=== PATIENT | female | born 1990 | race Caucasian/White ===

== ENCOUNTER 2016-04-14 15:44 | Emergency (ER) | payer MEDICAID ==
[~2016-04-14] VITALS: Ht 167.6 cm; Wt 95.5 kg
[~2016-04-14 15:44] MED LIST: AMOXICILLIN875 MG PO; BACTRIM DS 8001 TAB PO; BENTYL 20MG20 MG/TAB PO; DEPO-PROVER150 MG/M1 IM; GLUCOPHAGE500 MG/TAB PO; GUAIATUSSIN AC120 ML PO; IBU800 M1 PO; LIORESAL 1010 MG/TAB PO; LOTRISONE CREAM15 GM TP; MOTRIN 600600 MG/TAB PO; PERCOCET 325 MG1 TA2 PO; PHENERGAN 25 TA25 MG PO; PYRIDIUM200 M1 PO; SKELAXIN 800MG800 MG PO; SPRINTEC 35 MCG1 TAB PO; TOPAMAX 25MG25 M1 PO; ULTRAM 50MG TAB50 MG PO; ZOFRAN 4MG T4 MG/TAB PO; ZOFRAN ODT8 MG PO
[2016-04-14 15:46] VITALS: TEMP 98.2
[2016-04-14] MEDS ORDERED: ULTRAM 50MG TAB50 MG PO (16:52)
[2016-04-14 18:03] VITALS: BP 130/78; PULSE 70
== END 2016-04-14 18:04 | disposition home or self-care (01) ==
LOC: COL.ER 15:44
DX: R07.9 Chest pain, unspecified (principal)
CPT/HCPCS: J1885

== ENCOUNTER 2016-04-18 08:53 | Emergency (ER) | payer MEDICAID ==
[~2016-04-18] VITALS: Ht 167.6 cm; Wt 95.5 kg
[2016-04-18 08:58] VITALS: BP 118/79; TEMP 98.7
[2016-04-18 09:50] LABS: PH 6 (5-8); SQUAMOUS EPITHELIAL 0-2 /hpf; URINE APPEARANCE Clear; URINE BACTERIA Rare /hpf; URINE BILIRUBIN Negative (NEGATIVE); URINE BLOOD Negative (NEGATIVE); URINE COLOR Yellow; URINE GLUCOSE Negative (NEGATIVE); URINE KETONE Negative (NEGATIVE); URINE RBC 0-2 /hpf; URINE UROBILINOGEN Negative (NEGATIVE); URINE WBC 0-2 /hpf
[2016-04-18 10:30] VITALS: PULSE 85
== END 2016-04-18 10:30 | disposition home or self-care (01) ==
LOC: COL.ER 08:53
PROVIDERS: Physician Assistant
DX: R11.0 Nausea (principal); Z32.02 Encounter for pregnancy test, result negative

== ENCOUNTER 2016-05-02 03:35 | Emergency (ER) | payer MEDICAID ==
[~2016-05-02] VITALS: Ht 167.6 cm; Wt 100.0 kg
[2016-05-02 03:40] VITALS: TEMP 97.9
[2016-05-02] MEDS ORDERED: PHENERGAN 25 TA25 MG PO (04:22)
[2016-05-02 05:42] LABS: BASO # 0.1 (0.0-0.2); BASO % 0.4 % (0.0-2.0); EOS # 0.1 (0.0-0.7); EOS % 0.8 % (0-4.0); GRAN # 14.3 (1.4-6.5); GRAN % 84.2 % (42.2-75.2); HEMATOCRIT 42.1 % (37.0-47.0); HEMOGLOBIN 14.2 g/dl (12.5-16.0); LYMPH # 1.5 (1.2-3.4); LYMPH % 8.5 % (20.0-51.0); MEAN CELL VOLUME 92 fl (80.0-100.0); MEAN CORPUSCULAR HEMOGLOBIN 31 pg (27.0-31.0); MEAN CORPUSCULAR HGB CONC 34 g/dl (33.0-37.0); MEAN PLATELET VOLUME 11.1 fl (7.4-10.4); MONO % 5.8 % (1.7-9.3); PLATELET COUNT 220 K/mm3 (130-400); REDCELL DISTRIBUTION WIDTH-CV 13.1 % (11.5-14.5)
[2016-05-02 05:59] LABS: ADJUSTED CALCIUM 8.8 mg/dL (8.4-10.2); ALBUMIN 3.7 gm/dL (3.5-5.0); BILIRUBIN,TOTAL 0.9 mg/dL (0.0-1.0); CALCIUM 8.6 mg/dL (8.4-10.2); CREATININE, serum 0.68 mg/dL (0.52-1.25); POTASSIUM 4.2 mmol/L (3.4-5.0); TOTAL PROTEIN 6.7 gm/dL (6.4-8.2)
[2016-05-02 07:01] VITALS: BP 137/79; PULSE 70
== END 2016-05-02 07:05 | disposition home or self-care (01) ==
LOC: COL.ER 03:35
PROVIDERS: Emergency Medicine
DX: R11.10 Vomiting, unspecified (principal); R19.7 Diarrhea, unspecified; R10.817 Generalized abdominal tenderness
CPT/HCPCS: J1170; J1885; J2550; J7030

== ENCOUNTER 2016-07-10 08:48 | Emergency (ER) | payer MEDICAID ==
[~2016-07-10] VITALS: Ht 167.6 cm; Wt 104.5 kg
[2016-07-10 08:51] VITALS: BP 137/68; TEMP 99.2
[2016-07-10] MEDS ORDERED: ROBAXIN 50500 MG/TAB PO (09:12)
[2016-07-10] MEDS ORDERED: PERCOCET 325 MG1 TA2 PO (09:12)
[2016-07-10 09:53] VITALS: PULSE 81
== END 2016-07-10 09:52 | disposition home or self-care (01) ==
LOC: COL.ER 08:48
DX: M54.9 Dorsalgia, unspecified (principal); V48.5XXA Car driver injured in noncollision transport accident in traffic accident, initial encounter; Y92.410 Unspecified street and highway as the place of occurrence of the external cause
CPT/HCPCS: J1170; J1885

== ENCOUNTER 2016-07-22 11:44 | Emergency (ER) | payer MEDICAID ==
[~2016-07-22] VITALS: Ht 167.6 cm; Wt 100.0 kg
[~2016-07-22 11:44] MED LIST changes: +ROBAXIN 50500 MG/TAB PO
[2016-07-22 11:46] VITALS: BP 154/68; TEMP 98.7
[2016-07-22 12:24] LABS: PH 6 (5-8); SQUAMOUS EPITHELIAL 0-2 /hpf; URINE APPEARANCE Clear; URINE BACTERIA Rare /hpf; URINE BILIRUBIN Negative (NEGATIVE); URINE BLOOD Negative (NEGATIVE); URINE COLOR Yellow; URINE GLUCOSE Negative (NEGATIVE); URINE KETONE Negative (NEGATIVE); URINE RBC 0-2 /hpf; URINE UROBILINOGEN Negative (NEGATIVE); URINE WBC 0-2 /hpf
[2016-07-22 12:55] LABS: BASO # 0.1 (0.0-0.2); BASO % 0.8 % (0.0-2.0); EOS # 0.1 (0.0-0.7); EOS % 1.3 % (0-4.0); GRAN # 5.7 (1.4-6.5); GRAN % 63.4 % (42.2-75.2); HEMATOCRIT 42.2 % (37.0-47.0); HEMOGLOBIN 14.3 g/dl (12.5-16.0); LYMPH # 2.6 (1.2-3.4); LYMPH % 28.2 % (20.0-51.0); MEAN CELL VOLUME 91 fl (80.0-100.0); MEAN CORPUSCULAR HEMOGLOBIN 31 pg (27.0-31.0); MEAN CORPUSCULAR HGB CONC 34 g/dl (33.0-37.0); MEAN PLATELET VOLUME 11.5 fl (7.4-10.4); MONO # 0.5 (0.1-0.6); PLATELET COUNT 177 K/mm3 (130-400); RED BLOOD COUNT 4.62 M/mm3 (4.10-5.30); REDCELL DISTRIBUTION WIDTH-CV 13.1 % (11.5-14.5); WHITE BLOOD COUNT 9.1 K/mm3 (4.8-10.8)
[2016-07-22 13:06] LABS: ADJUSTED CALCIUM 9.1 mg/dL (8.4-10.2); ALBUMIN 3.8 gm/dL (3.5-5.0); BILIRUBIN,TOTAL 0.7 mg/dL (0.0-1.0); CALCIUM 8.9 mg/dL (8.4-10.2); CREATININE, serum 0.67 mg/dL (0.52-1.25); TOTAL PROTEIN 6.5 gm/dL (6.4-8.2)
[2016-07-22 14:53] VITALS: PULSE 79
[2016-07-22 14:59] LABS: CHLAMYDIA/TRACH by PCR Female NOT DETECTED; NEISSERIA GON by PCR Female NOT DETECTED
== END 2016-07-22 14:54 | disposition home or self-care (01) ==
LOC: COL.ER 11:44
PROVIDERS: Nurse Practitioner
DX: O26.891 Other specified pregnancy related conditions, first trimester (principal); Z3A.01 Less than 8 weeks gestation of pregnancy; R10.2 Pelvic and perineal pain; N89.8 Other specified noninflammatory disorders of vagina
CPT/HCPCS: J2765; J7030

== ENCOUNTER 2016-08-22 12:08 | Emergency (ER) | payer MEDICAID ==
[~2016-08-22] VITALS: Ht 167.6 cm; Wt 118.2 kg
[2016-08-22 12:15] VITALS: TEMP 98.2
[2016-08-22] MEDS ORDERED: PRENATAL MVI PO (12:18)
[2016-08-22 12:55] LABS: PH 5 (5-8); URINE APPEARANCE Hazy; URINE BACTERIA Rare /hpf; URINE BILIRUBIN Negative (NEGATIVE); URINE BLOOD Negative (NEGATIVE); URINE COLOR Yellow; URINE GLUCOSE Negative (NEGATIVE); URINE KETONE Negative (NEGATIVE); URINE UROBILINOGEN Negative (NEGATIVE)
[2016-08-22 14:58] VITALS: BP 138/78; PULSE 70
== END 2016-08-22 14:58 | disposition home or self-care (01) ==
LOC: COL.ER 12:08
PROVIDERS: Emergency Medicine
DX: O26.891 Other specified pregnancy related conditions, first trimester (principal); R10.2 Pelvic and perineal pain; Z3A.11 11 weeks gestation of pregnancy

== ENCOUNTER 2016-08-26 16:20 | Emergency (ER) | payer MEDICAID ==
[~2016-08-26] VITALS: Ht 167.6 cm; Wt 118.2 kg
[~2016-08-26 16:20] MED LIST changes: +PRENATAL MVI PO
[2016-08-26 16:21] VITALS: TEMP 98.9
[2016-08-26 20:23] LABS: BASO # 0.1 (0.0-0.2); BASO % 0.5 % (0.0-2.0); EOS % 0.4 % (0-4.0); GRAN # 6.8 (1.4-6.5); GRAN % 69.7 % (42.2-75.2); HEMATOCRIT 39.8 % (37.0-47.0); HEMOGLOBIN 13.5 g/dl (12.5-16.0); LYMPH # 2.3 (1.2-3.4); LYMPH % 23.4 % (20.0-51.0); MEAN CELL VOLUME 91 fl (80.0-100.0); MEAN CORPUSCULAR HEMOGLOBIN 31 pg (27.0-31.0); MEAN CORPUSCULAR HGB CONC 34 g/dl (33.0-37.0); MEAN PLATELET VOLUME 11.6 fl (7.4-10.4); MONO # 0.6 (0.1-0.6); MONO % 5.6 % (1.7-9.3); PH 5 (5-8); PLATELET COUNT 171 K/mm3 (130-400); RED BLOOD COUNT 4.37 M/mm3 (4.10-5.30); REDCELL DISTRIBUTION WIDTH-CV 13.5 % (11.5-14.5); URINE APPEARANCE Hazy; URINE BACTERIA Rare /hpf; URINE BILIRUBIN Negative (NEGATIVE); URINE BLOOD Negative (NEGATIVE); URINE COLOR Amber; URINE GLUCOSE 2+ (NEGATIVE); URINE KETONE 2+ (NEGATIVE); URINE UROBILINOGEN Negative (NEGATIVE); WHITE BLOOD COUNT 9.8 K/mm3 (4.8-10.8)
[2016-08-26 20:25] LABS: ALBUMIN 3.7 gm/dL (3.5-5.0); BILIRUBIN,TOTAL 0.6 mg/dL (0.0-1.0); C-REACTIVE PROTEIN 1.8 mg/dL (0.0-0.9); CALCIUM 8.8 mg/dL (8.4-10.2); CREATININE, serum 0.62 mg/dL (0.52-1.25); POTASSIUM 3.6 mmol/L (3.4-5.0); TOTAL PROTEIN 6.4 gm/dL (6.4-8.2)
[2016-08-26 22:41] VITALS: BP 138/72; PULSE 81
== END 2016-08-26 19:15 | disposition home or self-care (01) ==
LOC: COL.ER 16:20
PROVIDERS: Emergency Medicine
DX: O99.351 Diseases of the nervous system complicating pregnancy, first trimester (principal); O23.41 Unspecified infection of urinary tract in pregnancy, first trimester; G43.909 Migraine, unspecified, not intractable, without status migrainosus; Z3A.11 11 weeks gestation of pregnancy; Z90.49 Acquired absence of other specified parts of digestive tract; Z98.890 Other specified postprocedural states
CPT/HCPCS: J0696; J2550; J7030

== ENCOUNTER 2016-09-04 13:11 | Emergency (ER) | payer MEDICAID ==
[~2016-09-04] VITALS: Ht 167.6 cm; Wt 118.2 kg
[2016-09-04 13:16] VITALS: BP 132/63; TEMP 97.7
[2016-09-04 16:19] VITALS: PULSE 84
== END 2016-09-04 16:20 | disposition home or self-care (01) ==
LOC: COL.ER 13:11
DX: O99.89 Other specified diseases and conditions complicating pregnancy, childbirth and the puerperium (principal); R51 Headache; H53.8 Other visual disturbances; R42 Dizziness and giddiness; Z3A.11 11 weeks gestation of pregnancy; O99.351 Diseases of the nervous system complicating pregnancy, first trimester; G43.909 Migraine, unspecified, not intractable, without status migrainosus
CPT/HCPCS: J1200; J2765; J7030

== ENCOUNTER 2016-09-15 13:13 | Emergency (ER) | payer MEDICAID ==
[~2016-09-15] VITALS: Ht 167.6 cm; Wt 118.2 kg
[2016-09-15 13:14] VITALS: BP 152/90; PULSE 99; TEMP 99.5
[2016-09-15 14:12] LABS: BASO % 0.4 % (0.0-2.0); EOS # 0.1 (0.0-0.7); EOS % 0.8 % (0-4.0); GRAN # 7.4 (1.4-6.5); GRAN % 73.2 % (42.2-75.2); HEMATOCRIT 41.7 % (37.0-47.0); HEMOGLOBIN 14.2 g/dl (12.5-16.0); LYMPH # 2.2 (1.2-3.4); LYMPH % 21.3 % (20.0-51.0); MEAN CELL VOLUME 92 fl (80.0-100.0); MEAN CORPUSCULAR HEMOGLOBIN 31 pg (27.0-31.0); MEAN CORPUSCULAR HGB CONC 34 g/dl (33.0-37.0); MEAN PLATELET VOLUME 11.5 fl (7.4-10.4); MONO # 0.4 (0.1-0.6); MONO % 3.9 % (1.7-9.3); PLATELET COUNT 158 K/mm3 (130-400); RED BLOOD COUNT 4.53 M/mm3 (4.10-5.30); REDCELL DISTRIBUTION WIDTH-CV 13.5 % (11.5-14.5); WHITE BLOOD COUNT 10.2 K/mm3 (4.8-10.8)
[2016-09-15 14:13] LABS: PH 5 (5-8); URINE APPEARANCE Hazy; URINE BACTERIA Rare /hpf; URINE BILIRUBIN Negative (NEGATIVE); URINE BLOOD Negative (NEGATIVE); URINE COLOR Amber; URINE GLUCOSE Negative (NEGATIVE); URINE KETONE Trace (NEGATIVE); URINE UROBILINOGEN Negative (NEGATIVE)
[2016-09-15 14:16] LABS: ADJUSTED CALCIUM 9.3 mg/dL (8.4-10.2); ALBUMIN 3.9 gm/dL (3.5-5.0); BILIRUBIN,TOTAL 0.8 mg/dL (0.0-1.0); CALCIUM 9.2 mg/dL (8.4-10.2); CREATININE, serum 0.59 mg/dL (0.52-1.25); POTASSIUM 3.7 mmol/L (3.4-5.0); TOTAL PROTEIN 6.5 gm/dL (6.4-8.2)
[2016-09-15] MEDS ORDERED: MACROBID 1100 MG/CAP PO (15:38)
== END 2016-09-15 15:35 | disposition home or self-care (01) ==
LOC: COL.ER 13:13
PROVIDERS: Physician Assistant
DX: O99.89 Other specified diseases and conditions complicating pregnancy, childbirth and the puerperium (principal); R53.81 Other malaise; R10.84 Generalized abdominal pain; R11.2 Nausea with vomiting, unspecified; R07.89 Other chest pain; R82.90 Unspecified abnormal findings in urine; Z3A.14 14 weeks gestation of pregnancy
CPT/HCPCS: J2550; J7030

== ENCOUNTER 2016-10-05 10:23 | Emergency (ER) | payer MEDICAID ==
[~2016-10-05] VITALS: Ht 167.6 cm; Wt 104.5 kg
[~2016-10-05 10:23] MED LIST changes: +MACROBID 1100 MG/CAP PO
[2016-10-05 10:25] VITALS: BP 139/74; PULSE 99; TEMP 99.4
[2016-10-05 11:13] LABS: BASO % 0.3 % (0.0-2.0); EOS # 0.1 (0.0-0.7); EOS % 0.8 % (0-4.0); GRAN # 6.2 (1.4-6.5); GRAN % 70.8 % (42.2-75.2); HEMATOCRIT 38.3 % (37.0-47.0); HEMOGLOBIN 13.3 g/dl (12.5-16.0); LYMPH # 1.8 (1.2-3.4); LYMPH % 20.6 % (20.0-51.0); MEAN CELL VOLUME 91 fl (80.0-100.0); MEAN CORPUSCULAR HEMOGLOBIN 32 pg (27.0-31.0); MEAN CORPUSCULAR HGB CONC 35 g/dl (33.0-37.0); MEAN PLATELET VOLUME 11.6 fl (7.4-10.4); MONO # 0.6 (0.1-0.6); MONO % 6.6 % (1.7-9.3); PLATELET COUNT 145 K/mm3 (130-400); RED BLOOD COUNT 4.22 M/mm3 (4.10-5.30); REDCELL DISTRIBUTION WIDTH-CV 13.4 % (11.5-14.5); WHITE BLOOD COUNT 8.8 K/mm3 (4.8-10.8)
[2016-10-05 11:19] LABS: PH 7 (5-8); URINE APPEARANCE Cloudy; URINE BACTERIA Rare /hpf; URINE BILIRUBIN Negative (NEGATIVE); URINE BLOOD Negative (NEGATIVE); URINE COLOR Yellow; URINE GLUCOSE 1+ (NEGATIVE); URINE KETONE Trace (NEGATIVE); URINE RBC 0-2 /hpf; URINE UROBILINOGEN Negative (NEGATIVE); URINE WBC 0-2 /hpf
[2016-10-05 11:20] LABS: ADJUSTED CALCIUM 9.6 mg/dL (8.4-10.2); ALBUMIN 3.4 gm/dL (3.5-5.0); BILIRUBIN,TOTAL 0.3 mg/dL (0.0-1.0); CALCIUM 9.1 mg/dL (8.4-10.2); CREATININE, serum 0.49 mg/dL (0.52-1.25); POTASSIUM 3.9 mmol/L (3.4-5.0); TOTAL PROTEIN 6.2 gm/dL (6.4-8.2)
[2016-10-05] MEDS ORDERED: ZOFRAN ODT4 MG PO (11:42)
== END 2016-10-09 11:57 | disposition home or self-care (01) ==
LOC: COL.ER 10:23
PROVIDERS: Emergency Medicine
DX: O26.892 Other specified pregnancy related conditions, second trimester (principal); Z3A.16 16 weeks gestation of pregnancy
CPT/HCPCS: J2765; J7030

== ENCOUNTER 2016-11-10 18:49 | Emergency (ER) | payer MEDICAID ==
[~2016-11-10] VITALS: Ht 167.6 cm; Wt 109.1 kg
[~2016-11-10 18:49] MED LIST changes: +ZOFRAN ODT4 MG PO
[2016-11-10 18:51] VITALS: BP 132/66; TEMP 98.9
[2016-11-10 19:26] LABS: BASO % 0.3 % (0.0-2.0); EOS # 0.2 (0.0-0.7); EOS % 1.7 % (0-4.0); GRAN # 7.9 (1.4-6.5); GRAN % 66.6 % (42.2-75.2); HEMATOCRIT 37.2 % (37.0-47.0); HEMOGLOBIN 12.8 g/dl (12.5-16.0); LYMPH # 2.9 (1.2-3.4); LYMPH % 24.7 % (20.0-51.0); MEAN CELL VOLUME 92 fl (80.0-100.0); MEAN CORPUSCULAR HEMOGLOBIN 32 pg (27.0-31.0); MEAN CORPUSCULAR HGB CONC 34 g/dl (33.0-37.0); MEAN PLATELET VOLUME 12.1 fl (7.4-10.4); MONO # 0.7 (0.1-0.6); PLATELET COUNT 152 K/mm3 (130-400); RED BLOOD COUNT 4.04 M/mm3 (4.10-5.30); REDCELL DISTRIBUTION WIDTH-CV 13.6 % (11.5-14.5); WHITE BLOOD COUNT 11.9 K/mm3 (4.8-10.8)
[2016-11-10 19:31] LABS: PH 6 (5-8); URINE APPEARANCE Cloudy; URINE BACTERIA None Seen /hpf; URINE BILIRUBIN Negative (NEGATIVE); URINE BLOOD Negative (NEGATIVE); URINE COLOR Yellow; URINE GLUCOSE Negative (NEGATIVE); URINE KETONE Negative (NEGATIVE); URINE RBC 0-2 /hpf; URINE UROBILINOGEN Negative (NEGATIVE)
[2016-11-10 19:58] VITALS: PULSE 88
== END 2016-11-10 19:59 | disposition home or self-care (01) ==
LOC: COL.ER 18:49
PROVIDERS: Family Medicine
DX: O9A.212 Injury, poisoning and certain other consequences of external causes complicating pregnancy, second trimester (principal); S30.1XXA Contusion of abdominal wall, initial encounter; Z3A.21 21 weeks gestation of pregnancy; W18.30XA Fall on same level, unspecified, initial encounter

== ENCOUNTER → 2016-11-28 | Outpatient (CLI) | payer MEDICAID ==
[~2016-11-28] MED LIST changes: +PEPCID40 MG PO
== END ==
LOC: SUN.DIA 11-14 09:50
DX: O24.419 Gestational diabetes mellitus in pregnancy, unspecified control (principal); Z3A.23 23 weeks gestation of pregnancy; Z90.49 Acquired absence of other specified parts of digestive tract; Z71.3 Dietary counseling and surveillance
CPT/HCPCS: G0108

== ENCOUNTER 2016-11-30 19:32 | Emergency (ER) | payer MEDICAID ==
[~2016-11-30] VITALS: Ht 167.6 cm; Wt 118.2 kg
[~2016-11-30 19:32] MED LIST changes: -PEPCID40 MG PO
[2016-11-30 19:34] VITALS: TEMP 99.5
[2016-11-30 20:09] VITALS: BP 118/78
[2016-11-30 20:15] LABS: PH 6 (5-8); SQUAMOUS EPITHELIAL 0-2 /hpf; URINE APPEARANCE Clear; URINE BACTERIA None Seen /hpf; URINE BILIRUBIN Negative (NEGATIVE); URINE BLOOD Negative (NEGATIVE); URINE COLOR Yellow; URINE GLUCOSE Negative (NEGATIVE); URINE KETONE Negative (NEGATIVE); URINE RBC 0-2 /hpf; URINE UROBILINOGEN Negative (NEGATIVE)
[2016-11-30 20:41] LABS: BASO # 0.1 (0.0-0.2); BASO % 0.4 % (0.0-2.0); EOS # 0.1 (0.0-0.7); EOS % 1.1 % (0-4.0); GRAN # 8.8 (1.4-6.5); GRAN % 69.4 % (42.2-75.2); HEMOGLOBIN 12.5 g/dl (12.5-16.0); LYMPH # 2.9 (1.2-3.4); LYMPH % 22.6 % (20.0-51.0); MEAN CELL VOLUME 93 fl (80.0-100.0); MEAN CORPUSCULAR HEMOGLOBIN 32 pg (27.0-31.0); MEAN CORPUSCULAR HGB CONC 35 g/dl (33.0-37.0); MEAN PLATELET VOLUME 11.7 fl (7.4-10.4); MONO # 0.7 (0.1-0.6); MONO % 5.7 % (1.7-9.3); PLATELET COUNT 156 K/mm3 (130-400); RED BLOOD COUNT 3.87 M/mm3 (4.10-5.30); REDCELL DISTRIBUTION WIDTH-CV 13.9 % (11.5-14.5); WHITE BLOOD COUNT 12.7 K/mm3 (4.8-10.8)
[2016-11-30 20:43] LABS: HEMATOCRIT 36.1 % (37.0-47.0)
[2016-11-30 20:54] LABS: ADJUSTED CALCIUM 9.6 mg/dL (8.4-10.2); ALBUMIN 3.5 gm/dL (3.5-5.0); BILIRUBIN,TOTAL 0.3 mg/dL (0.0-1.0); CALCIUM 9.2 mg/dL (8.4-10.2); CREATININE, serum 0.7 mg/dL (0.52-1.25); POTASSIUM 3.6 mmol/L (3.4-5.0); TOTAL PROTEIN 6.4 gm/dL (6.4-8.2)
[2016-11-30 21:38] VITALS: PULSE 75
== END 2016-11-30 21:40 | disposition home or self-care (01) ==
LOC: COL.ER 19:32
PROVIDERS: Emergency Medicine
DX: O26.92 Pregnancy related conditions, unspecified, second trimester (principal); R42 Dizziness and giddiness; Z3A.23 23 weeks gestation of pregnancy
CPT/HCPCS: J7030

== ENCOUNTER 2016-12-03 08:54 | Outpatient (CLI) | payer MEDICAID ==
[~2016-12-03] VITALS: Ht 167.6 cm; Wt 118.6 kg
[2016-12-03 09:15] VITALS: BP 136/65; PULSE 77; TEMP 98.4
[2016-12-03 10:00] VITALS: BP 139/63; PULSE 78
[2016-12-03 10:28] LABS: PH 7 (5-8); URINE APPEARANCE Hazy; URINE BACTERIA None Seen /hpf; URINE BILIRUBIN Negative (NEGATIVE); URINE BLOOD Negative (NEGATIVE); URINE COLOR Yellow; URINE GLUCOSE Negative (NEGATIVE); URINE KETONE Trace (NEGATIVE); URINE RBC 0-2 /hpf; URINE UROBILINOGEN Negative (NEGATIVE)
== END 2016-12-03 11:00 | disposition home or self-care (01) ==
LOC: LDRO 08:54
PROVIDERS: Obstetrics & Gynecology
DX: O26.892 Other specified pregnancy related conditions, second trimester (principal); Z3A.24 24 weeks gestation of pregnancy

== ENCOUNTER → 2016-12-12 | Outpatient (CLI) | payer MEDICAID ==
[~2016-12-12] MED LIST changes: +PEPCID40 MG PO
== END ==
LOC: COL.VAS 12:30
DX: O99.412 Diseases of the circulatory system complicating pregnancy, second trimester (principal); I36.1 Nonrheumatic tricuspid (valve) insufficiency; O99.512 Diseases of the respiratory system complicating pregnancy, second trimester; R06.02 Shortness of breath; Z3A.24 24 weeks gestation of pregnancy

== ENCOUNTER 2016-12-14 14:36 | Emergency (ER) | payer MEDICAID ==
[~2016-12-14] VITALS: Ht 167.6 cm; Wt 118.2 kg
[~2016-12-14 14:36] MED LIST changes: -PEPCID40 MG PO
[2016-12-14 14:40] VITALS: TEMP 98.3
[2016-12-14 16:15] LABS: PH 6 (5-8); URINE APPEARANCE Hazy; URINE BACTERIA None Seen /hpf; URINE BILIRUBIN Negative (NEGATIVE); URINE BLOOD Negative (NEGATIVE); URINE COLOR Yellow; URINE GLUCOSE 1+ (NEGATIVE); URINE KETONE Negative (NEGATIVE); URINE RBC 0-2 /hpf; URINE UROBILINOGEN Negative (NEGATIVE); URINE WBC 0-2 /hpf
[2016-12-14 16:22] LABS: ADJUSTED CALCIUM 9.5 mg/dL (8.4-10.2); ALBUMIN 3.5 gm/dL (3.5-5.0); BASO % 0.4 % (0.0-2.0); BILIRUBIN,TOTAL 0.4 mg/dL (0.0-1.0); CALCIUM 9.1 mg/dL (8.4-10.2); CREATININE, serum 0.56 mg/dL (0.52-1.25); EOS # 0.2 (0.0-0.7); EOS % 1.8 % (0-4.0); GRAN # 8.2 (1.4-6.5); GRAN % 71.8 % (42.2-75.2); HEMATOCRIT 36.2 % (37.0-47.0); HEMOGLOBIN 12.3 g/dl (12.5-16.0); LYMPH # 2.1 (1.2-3.4); LYMPH % 18.6 % (20.0-51.0); MEAN CELL VOLUME 95 fl (80.0-100.0); MEAN CORPUSCULAR HEMOGLOBIN 32 pg (27.0-31.0); MEAN CORPUSCULAR HGB CONC 34 g/dl (33.0-37.0); MONO # 0.7 (0.1-0.6); MONO % 6.5 % (1.7-9.3); PLATELET COUNT 160 K/mm3 (130-400); POTASSIUM 4.1 mmol/L (3.4-5.0); RED BLOOD COUNT 3.83 M/mm3 (4.10-5.30); TOTAL PROTEIN 6.4 gm/dL (6.4-8.2); WHITE BLOOD COUNT 11.4 K/mm3 (4.8-10.8)
[2016-12-14] MEDS ORDERED: PEPCID40 MG PO (17:42)
[2016-12-14 17:53] VITALS: BP 103/53; PULSE 71
== END 2016-12-14 17:54 | disposition home or self-care (01) ==
LOC: COL.ER 14:36
PROVIDERS: Emergency Medicine
DX: O99.89 Other specified diseases and conditions complicating pregnancy, childbirth and the puerperium (principal); R10.13 Epigastric pain; R07.9 Chest pain, unspecified; Z3A.25 25 weeks gestation of pregnancy
CPT/HCPCS: J7030

== ENCOUNTER 2016-12-24 10:35 | Outpatient (CLI) | payer MEDICAID ==
[~2016-12-24] VITALS: Ht 167.6 cm; Wt 118.6 kg
[~2016-12-24 10:35] MED LIST changes: +PEPCID40 MG PO
[2016-12-24 10:48] VITALS: BP 127/71; PULSE 87; TEMP 98
[2016-12-24 11:35] LABS: PH 7 (5-8); URINE APPEARANCE Hazy; URINE BACTERIA Rare /hpf; URINE BILIRUBIN Negative (NEGATIVE); URINE BLOOD Negative (NEGATIVE); URINE COLOR Yellow; URINE GLUCOSE Negative (NEGATIVE); URINE KETONE 1+ (NEGATIVE); URINE RBC 0-2 /hpf; URINE UROBILINOGEN Negative (NEGATIVE)
[2016-12-24 11:48] VITALS: BP 127/71; PULSE 87; TEMP 98.8
== END 2016-12-24 12:00 | disposition home or self-care (01) ==
LOC: LDRO 10:35
PROVIDERS: Obstetrics & Gynecology
DX: O99.89 Other specified diseases and conditions complicating pregnancy, childbirth and the puerperium (principal); M54.9 Dorsalgia, unspecified; Z3A.27 27 weeks gestation of pregnancy

== ENCOUNTER → 2017-01-02 | Outpatient (CLI) | payer MEDICAID | LOC: SUN.DIA 12-19 09:51 | DX: O24.414 Gestational diabetes mellitus in pregnancy, insulin controlled (principal); Z3A.29 29 weeks gestation of pregnancy; Z71.3 Dietary counseling and surveillance | CPT/HCPCS: G0108 ==

== ENCOUNTER → 2017-01-09 | Outpatient (CLI) | payer MEDICAID ==
[~2017-01-09] MED LIST changes: +LEVEMIR100 U/ML SQ; +TYLENOL 500MG500 MG PO
== END ==
LOC: SUN.DIA 09:45
DX: O24.414 Gestational diabetes mellitus in pregnancy, insulin controlled (principal); Z3A.31 31 weeks gestation of pregnancy; Z71.3 Dietary counseling and surveillance
CPT/HCPCS: G0108

== ENCOUNTER 2017-01-14 14:03 | Outpatient (CLI) | payer MEDICAID ==
[~2017-01-14] VITALS: Ht 15.2 cm; Wt 118.6 kg
[~2017-01-14 14:03] MED LIST changes: -LEVEMIR100 U/ML SQ; -TYLENOL 500MG500 MG PO
[2017-01-14 14:27] VITALS: BP 126/73; PULSE 86; TEMP 98
[2017-01-14] MEDS ORDERED: LEVEMIR100 U/ML SQ (14:29)
[2017-01-14 14:30] VITALS: BP 126/73; PULSE 86; TEMP 98
[2017-01-14] MEDS ORDERED: TYLENOL 500MG500 MG PO (14:30)
[2017-01-14 15:00] VITALS: BP 122/74; PULSE 86
[2017-01-14 15:32] VITALS: BP 129/69; PULSE 82; TEMP 97.9
[2017-01-14] MEDS ORDERED: MACROBID 1100 MG/CAP PO (15:40)
== END 2017-01-14 15:55 | disposition home or self-care (01) ==
LOC: LDRO 14:03
DX: O26.893 Other specified pregnancy related conditions, third trimester (principal); R10.9 Unspecified abdominal pain; Z3A.30 30 weeks gestation of pregnancy

== ENCOUNTER 2017-01-15 17:29 | Emergency (ER) | payer MEDICAID ==
[~2017-01-15] VITALS: Ht 167.6 cm; Wt 119.5 kg
[~2017-01-15 17:29] MED LIST changes: +LEVEMIR100 U/ML SQ; +TYLENOL 500MG500 MG PO
[2017-01-15 17:34] VITALS: BP 121/56; TEMP 99
[2017-01-15 19:10] VITALS: PULSE 86
== END 2017-01-15 19:11 | disposition home or self-care (01) ==
LOC: COL.ER 17:29
DX: O9A.213 Injury, poisoning and certain other consequences of external causes complicating pregnancy, third trimester (principal); S63.601A Unspecified sprain of right thumb, initial encounter; Z3A.30 30 weeks gestation of pregnancy; Z79.4 Long term (current) use of insulin; Z98.818 Other dental procedure status; Z98.890 Other specified postprocedural states; W23.1XXA Caught, crushed, jammed, or pinched between stationary objects, initial encounter; Y92.009 Unspecified place in unspecified non-institutional (private) residence as the place of occurrence of the external cause

== ENCOUNTER 2017-01-22 16:35 | Outpatient (CLI) | payer MEDICAID ==
[~2017-01-22] VITALS: Ht 167.6 cm; Wt 120.9 kg
[2017-01-22 17:09] VITALS: BP 129/60; PULSE 86; TEMP 98.6
[2017-01-22 17:15] VITALS: BP 129/60; PULSE 86; TEMP 98.6
[2017-01-22 18:30] VITALS: BP 129/60; PULSE 78
== END 2017-01-22 18:45 | disposition home or self-care (01) ==
LOC: LDRO 16:35 → OB 16:45 → LDRO 18:45
DX: O26.893 Other specified pregnancy related conditions, third trimester (principal); Z3A.31 31 weeks gestation of pregnancy
CPT/HCPCS: OP

== ENCOUNTER 2017-01-26 16:45 | Inpatient (IN) | payer MEDICAID ==
[~2017-01-26] VITALS: Ht 167.7 cm; Wt 121.8 kg
[2017-03-03] MEDS ORDERED: ZANTAC 150MG T150 MG PO (20:39)
[2017-03-13] VITALS (19 sets, daily range): BP systolic 115–146; BP diastolic 51–81; PULSE 73–87; TEMP 98.3–98.7
[2017-03-13 07:09] LABS: BASO # 0.1 (0.0-0.2); BASO % 0.7 % (0.0-2.0); EOS # 0.4 (0.0-0.7); EOS % 3.4 % (0-4.0); GRAN # 7.1 (1.4-6.5); HEMATOCRIT 38.4 % (37.0-47.0); HEMOGLOBIN 12.7 g/dl (12.5-16.0); LYMPH # 1.8 (1.2-3.4); LYMPH % 17.4 % (20.0-51.0); MEAN CELL VOLUME 94 fl (80.0-100.0); MEAN CORPUSCULAR HEMOGLOBIN 31 pg (27.0-31.0); MEAN CORPUSCULAR HGB CONC 33 g/dl (33.0-37.0); MEAN PLATELET VOLUME 13.1 fl (7.4-10.4); MONO # 0.9 (0.1-0.6); MONO % 8.5 % (1.7-9.3); PLATELET COUNT 137 K/mm3 (130-400); RED BLOOD COUNT 4.08 M/mm3 (4.10-5.30); WHITE BLOOD COUNT 10.3 K/mm3 (4.8-10.8)
[2017-03-14 00:42] VITALS: BP 106/59; PULSE 86; TEMP 98.2
[2017-03-14 06:34] LABS: BASO % 0.4 % (0.0-2.0); EOS # 0.3 (0.0-0.7); EOS % 2.5 % (0-4.0); GRAN # 7.3 (1.4-6.5); GRAN % 68.8 % (42.2-75.2); HEMATOCRIT 36.1 % (37.0-47.0); LYMPH # 1.9 (1.2-3.4); LYMPH % 17.9 % (20.0-51.0); MEAN CELL VOLUME 95 fl (80.0-100.0); MEAN CORPUSCULAR HEMOGLOBIN 32 pg (27.0-31.0); MEAN CORPUSCULAR HGB CONC 33 g/dl (33.0-37.0); MEAN PLATELET VOLUME 12.6 fl (7.4-10.4); MONO % 9.7 % (1.7-9.3); PLATELET COUNT 108 K/mm3 (130-400); RED BLOOD COUNT 3.79 M/mm3 (4.10-5.30); WHITE BLOOD COUNT 10.5 K/mm3 (4.8-10.8)
[2017-03-14 07:27] VITALS: BP 144/70; PULSE 96; TEMP 98.3
[2017-03-14 16:15] VITALS: BP 135/66; PULSE 90; TEMP 99.6
[2017-03-14 21:00] VITALS: BP 123/70; PULSE 80; TEMP 98.6
[2017-03-15 08:00] VITALS: BP 126/61; PULSE 84; TEMP 99.1
[2017-03-15] MEDS ORDERED: PERCOCET 325 MG1 TA2 PO (09:54)
[2017-03-15] MEDS ORDERED: IBU600 MG PO (09:54)
[2017-03-15 16:19] VITALS: BP 139/64; PULSE 78; TEMP 98.9
[2017-03-15 20:00] VITALS: BP 130/66; PULSE 66; TEMP 98.5
[2017-03-16 06:48] VITALS: BP 140/58; PULSE 72
== END 2017-03-16 13:15 | disposition home or self-care (01) | DRG 765 ==
LOC: OB 03-13 05:40 → LDR 03-13 15:32 → OB 03-16 13:15 → LDR 03-25 16:44
PROVIDERS: Obstetrics & Gynecology
PROC: 10D00Z1 Extraction of Products of Conception, Low, Open Approach (ICD-10-PCS; principal; 2017-03-13)
PROC: 0DNU0ZZ Release Omentum, Open Approach (ICD-10-PCS; 2017-03-13)
DX: O34.211 Maternal care for low transverse scar from previous cesarean delivery (principal); O36.0130 Maternal care for anti-D [Rh] antibodies, third trimester, not applicable or unspecified; N85.8 Other specified noninflammatory disorders of uterus; O24.420 Gestational diabetes mellitus in childbirth, diet controlled; O34.83 Maternal care for other abnormalities of pelvic organs, third trimester; E28.2 Polycystic ovarian syndrome; O69.81X0 Labor and delivery complicated by cord around neck, without compression, not applicable or unspecified; O99.62 Diseases of the digestive system complicating childbirth; K66.0 Peritoneal adhesions (postprocedural) (postinfection); Z3A.38 38 weeks gestation of pregnancy; Z37.0 Single live birth
CPT/HCPCS: J0690; J1885; J2270; J2405; J2590; J2704; J2791; J3010; J7120

== ENCOUNTER 2017-02-06 15:59 | Outpatient (RCR) | payer MEDICAID ==
[~2017-02-06] VITALS: Ht 167.6 cm; Wt 119.0 kg
[2017-02-06 17:10] VITALS: BP 124/67; PULSE 77; TEMP 97.6
== END 2017-02-06 19:00 | disposition home or self-care (01) ==
LOC: EUO 15:59
DX: O21.2 Late vomiting of pregnancy (principal); Z3A.33 33 weeks gestation of pregnancy
CPT/HCPCS: J2405; J7030

== ENCOUNTER 2017-02-14 13:04 | Outpatient (CLI) | payer MEDICAID ==
[~2017-02-14] VITALS: Ht 167.6 cm; Wt 119.5 kg
[2017-02-14 13:15] VITALS: BP 130/62; PULSE 91; TEMP 98.5
[2017-02-14 13:38] VITALS: BP 130/62; PULSE 91
== END 2017-02-14 13:50 | disposition home or self-care (01) ==
LOC: LDRO 13:04 → LDR 13:15 → LDRO 13:50
DX: O26.893 Other specified pregnancy related conditions, third trimester (principal); R10.9 Unspecified abdominal pain; Z3A.34 34 weeks gestation of pregnancy
CPT/HCPCS: OP

== ENCOUNTER 2017-02-25 13:24 | Outpatient (CLI) | payer MEDICAID ==
[~2017-02-25] VITALS: Ht 167.6 cm; Wt 119.5 kg
[2017-02-25 13:42] VITALS: BP 131/62; PULSE 90; TEMP 98.2
[2017-02-25 14:30] VITALS: BP 131/59; PULSE 90
[2017-02-25 15:00] VITALS: BP 132/70; PULSE 91
[2017-02-25 15:30] VITALS: BP 134/62; PULSE 89
[2017-02-25 15:48] LABS: COLLECTION METHOD CLEAN CATCH
[2017-02-25 16:02] LABS: AMORPHOUS CRYSTAL Present /uL; MUCOUS Present /lpf; PH 6 (5-8); URINE APPEARANCE Hazy; URINE BACTERIA None Seen /hpf; URINE BILIRUBIN Negative (NEGATIVE); URINE BLOOD Negative (NEGATIVE); URINE COLOR Yellow; URINE GLUCOSE 1+ (NEGATIVE); URINE KETONE Negative (NEGATIVE); URINE LEUKOCYTE ESTERASE Negative (NEGATIVE); URINE PROTEIN(semi-quant) 1+ (NEGATIVE); URINE RBC 0-2 /hpf; URINE UROBILINOGEN Negative (NEGATIVE)
[2017-02-25 16:05] LABS: AMPHETAMINE URINE NEGATIVE; BARBITURATES URINE NEGATIVE; BENZODIAZEPINES URINE NEGATIVE; BUPRENORPHINE URINE NEGATIVE; METHADONE URINE NEGATIVE; OPIATES URINE NEGATIVE; OXYCODONE URINE NEGATIVE; PHENCYCLIDINE URINE NEGATIVE; PROPOXYPHENE URINE NEGATIVE; THC CANNABINOIDS URINE NEGATIVE; TRICYCLIC ANTIDEPRESS URINE NEGATIVE
[2017-02-25 16:11] VITALS: BP 132/67; PULSE 85
== END 2017-02-25 16:20 | disposition home or self-care (01) ==
LOC: LDRO 13:24 → LDR 13:35 → LDRO 16:20
PROVIDERS: Obstetrics & Gynecology
DX: O26.893 Other specified pregnancy related conditions, third trimester (principal); M25.559 Pain in unspecified hip; Z3A.36 36 weeks gestation of pregnancy

== ENCOUNTER → 2017-02-28 | Outpatient (CLI) | payer MEDICAID ==
[~2017-02-28] MED LIST changes: +ZANTAC 150MG T150 MG PO
== END ==
LOC: SUN.DIA 02-06 10:13
DX: O24.414 Gestational diabetes mellitus in pregnancy, insulin controlled (principal); Z3A.38 38 weeks gestation of pregnancy; E28.2 Polycystic ovarian syndrome; Z71.3 Dietary counseling and surveillance; Z87.891 Personal history of nicotine dependence
CPT/HCPCS: G0108

== ENCOUNTER 2017-03-03 01:15 | Outpatient (CLI) | payer MEDICAID ==
[~2017-03-03] VITALS: Ht 167.6 cm; Wt 117.7 kg
[~2017-03-03 01:15] MED LIST changes: -ZANTAC 150MG T150 MG PO
[2017-03-03 01:34] VITALS: BP 116/62; PULSE 84; TEMP 98
[2017-03-03 03:30] VITALS: BP 133/76; PULSE 77; TEMP 98.1
[2017-03-03 05:25] LABS: COLLECTION METHOD CATHETER
[2017-03-03 05:26] LABS: AMORPHOUS CRYSTAL Present /uL; PH 7 (5-8); SQUAMOUS EPITHELIAL 0-2 /hpf; URINE APPEARANCE Hazy; URINE BACTERIA None Seen /hpf; URINE BILIRUBIN Negative (NEGATIVE); URINE BLOOD Negative (NEGATIVE); URINE COLOR Yellow; URINE GLUCOSE Negative (NEGATIVE); URINE KETONE 1+ (NEGATIVE); URINE LEUKOCYTE ESTERASE Negative (NEGATIVE); URINE PROTEIN(semi-quant) Negative (NEGATIVE); URINE RBC 0-2 /hpf; URINE UROBILINOGEN Negative (NEGATIVE); URINE WBC 0-2 /hpf
[2017-03-03] MEDS ORDERED: ZANTAC 150MG T150 MG PO (20:39)
== END 2017-03-03 05:35 | disposition home or self-care (01) ==
LOC: LDRO 01:15
PROVIDERS: Obstetrics & Gynecology
DX: O62.9 Abnormality of forces of labor, unspecified (principal); Z3A.36 36 weeks gestation of pregnancy
CPT/HCPCS: J7120

== ENCOUNTER 2017-03-03 20:12 | Outpatient (CLI) | payer MEDICAID ==
[~2017-03-03] VITALS: Ht 167.6 cm; Wt 117.7 kg
[2017-03-03 20:30] VITALS: BP 132/63; PULSE 87; TEMP 98.4
[2017-03-03 20:31] VITALS: BP 132/63; PULSE 87; TEMP 98.4
[2017-03-03] MEDS ORDERED: ZANTAC 150MG T150 MG PO (20:39)
[2017-03-03 21:00] VITALS: BP 134/58; PULSE 85
== END 2017-03-03 21:15 | disposition home or self-care (01) ==
LOC: LDRO 20:12
DX: O62.9 Abnormality of forces of labor, unspecified (principal); Z3A.36 36 weeks gestation of pregnancy

== ENCOUNTER 2017-03-07 16:42 | Outpatient (CLI) | payer MEDICAID ==
[~2017-03-07] VITALS: Ht 167.6 cm; Wt 120.5 kg
[~2017-03-07 16:42] MED LIST changes: +ZANTAC 150MG T150 MG PO
[2017-03-07 17:08] VITALS: BP 132/61; PULSE 103; TEMP 99.1
[2017-03-07 17:20] VITALS: BP 132/61; PULSE 103; TEMP 99.1
[2017-03-07 18:30] VITALS: BP 126/75; PULSE 87
== END 2017-03-07 18:50 | disposition home or self-care (01) ==
LOC: LDRO 16:42
DX: Z34.83 Encounter for supervision of other normal pregnancy, third trimester (principal); Z3A.37 37 weeks gestation of pregnancy

== ENCOUNTER 2017-03-11 19:31 | Outpatient (CLI) | payer MEDICAID ==
[~2017-03-11] VITALS: Ht 167.6 cm; Wt 120.5 kg
[2017-03-11 19:50] VITALS: BP 139/81; PULSE 82; TEMP 97.9
[2017-03-11 20:18] VITALS: BP 139/81; PULSE 82; TEMP 97.7
== END 2017-03-11 20:45 | disposition home or self-care (01) ==
LOC: LDRO 19:31
DX: Z34.83 Encounter for supervision of other normal pregnancy, third trimester (principal); Z3A.38 38 weeks gestation of pregnancy

== ENCOUNTER 2017-04-23 12:15 | Emergency (ER) | payer MEDICAID ==
[~2017-04-23] VITALS: Ht 167.6 cm; Wt 111.8 kg
[~2017-04-23 12:15] MED LIST changes: +IBU600 MG PO
[2017-04-23 12:32] VITALS: BP 127/60
[2017-04-23 14:24] VITALS: PULSE 58; TEMP 98.2
== END 2017-04-23 14:20 | disposition home or self-care (01) ==
LOC: COL.ER 12:15
DX: S96.912A Strain of unspecified muscle and tendon at ankle and foot level, left foot, initial encounter (principal); E66.01 Morbid (severe) obesity due to excess calories; Z68.39 Body mass index [BMI] 39.0-39.9, adult; Z87.891 Personal history of nicotine dependence; Z90.49 Acquired absence of other specified parts of digestive tract; Z98.818 Other dental procedure status; Z98.890 Other specified postprocedural states; W01.0XXA Fall on same level from slipping, tripping and stumbling without subsequent striking against object, initial encounter; X50.0XXA Overexertion from strenuous movement or load, initial encounter; Y92.009 Unspecified place in unspecified non-institutional (private) residence as the place of occurrence of the external cause

== ENCOUNTER 2017-07-11 09:03 | Emergency (ER) | payer MEDICAID ==
[~2017-07-11] VITALS: Ht 167.6 cm; Wt 111.4 kg
[2017-07-11 09:07] VITALS: BP 136/64; PULSE 82; TEMP 98.8
[2017-07-11] MEDS ORDERED: FASTIN30 MG PO (09:10)
== END 2017-07-11 09:59 | disposition home or self-care (01) ==
LOC: COL.ER 09:03
DX: S93.401A Sprain of unspecified ligament of right ankle, initial encounter (principal); X50.0XXA Overexertion from strenuous movement or load, initial encounter; Y92.009 Unspecified place in unspecified non-institutional (private) residence as the place of occurrence of the external cause

== ENCOUNTER 2017-08-09 10:57 | Emergency (ER) | payer MEDICAID ==
[~2017-08-09] VITALS: Ht 167.6 cm; Wt 114.5 kg
[~2017-08-09 10:57] MED LIST changes: +FASTIN30 MG PO
[2017-08-09 11:01] VITALS: BP 141/80; TEMP 98.7
[2017-08-09 12:51] VITALS: PULSE 68
== END 2017-08-09 12:52 | disposition home or self-care (01) ==
LOC: COL.ER 10:57
DX: S46.912A Strain of unspecified muscle, fascia and tendon at shoulder and upper arm level, left arm, initial encounter (principal); F17.210 Nicotine dependence, cigarettes, uncomplicated; X50.1XXA Overexertion from prolonged static or awkward postures, initial encounter

== ENCOUNTER → 2017-09-25 | Outpatient (CLI) | payer MEDICAID ==
[2017-09-25 15:57] LABS: BASO # 0.1 (0.0-0.2); BASO % 1.1 % (0.0-2.0); EOS # 0.2 (0.0-0.7); EOS % 1.8 % (0-4.0); GRAN # 5.8 (1.4-6.5); GRAN % 55.1 % (42.2-75.2); HEMATOCRIT 45.4 % (37.0-47.0); HEMOGLOBIN 15.5 g/dl (12.5-16.0); LYMPH # 3.6 (1.2-3.4); LYMPH % 33.8 % (20.0-51.0); MEAN CELL VOLUME 88 fl (80.0-100.0); MEAN CORPUSCULAR HEMOGLOBIN 30 pg (27.0-31.0); MEAN CORPUSCULAR HGB CONC 34 g/dl (33.0-37.0); MEAN PLATELET VOLUME 11.9 fl (7.4-10.4); MONO # 0.8 (0.1-0.6); MONO % 7.9 % (1.7-9.3); PLATELET COUNT 197 K/mm3 (130-400); RED BLOOD COUNT 5.17 M/mm3 (4.10-5.30); REDCELL DISTRIBUTION WIDTH-CV 13.3 % (11.5-14.5)
[2017-09-25 16:05] LABS: ALBUMIN 3.7 gm/dL (3.5-5.0); BILIRUBIN,TOTAL 0.7 mg/dL (0.0-1.0); CALCIUM 8.9 mg/dL (8.4-10.2); CHOLESTEROL RISK RATIO 5.9; CREATININE, serum 0.66 mg/dL (0.52-1.25); TOTAL PROTEIN 6.8 gm/dL (6.4-8.2)
[2017-09-25 16:35] LABS: TSH w REFLEX 1.88 uIU/mL (0.465-4.680)
== END ==
LOC: COL.LAB 13:38
PROVIDERS: Family Medicine
DX: Z13.220 Encounter for screening for lipoid disorders (principal); Z13.29 Encounter for screening for other suspected endocrine disorder; Z11.3 Encounter for screening for infections with a predominantly sexual mode of transmission; R10.9 Unspecified abdominal pain; Z86.32 Personal history of gestational diabetes

== ENCOUNTER 2017-11-03 17:26 | Emergency (ER) | payer MEDICAID ==
[~2017-11-03] VITALS: Ht 167.6 cm; Wt 97.7 kg
[2017-11-03 17:33] VITALS: TEMP 97.5
[2017-11-03 18:17] LABS: COLLECTION METHOD CLEAN CATCH
[2017-11-03 18:20] LABS: BASO # 0.1 (0.0-0.2); BASO % 0.7 % (0.0-2.0); EOS # 0.2 (0.0-0.7); EOS % 2.1 % (0-4.0); GRAN # 6.1 (1.4-6.5); HEMATOCRIT 43.8 % (37.0-47.0); HEMOGLOBIN 14.5 g/dl (12.5-16.0); LYMPH # 3.6 (1.2-3.4); LYMPH % 33.6 % (20.0-51.0); MEAN CELL VOLUME 91 fl (80.0-100.0); MEAN CORPUSCULAR HEMOGLOBIN 30 pg (27.0-31.0); MEAN CORPUSCULAR HGB CONC 33 g/dl (33.0-37.0); MEAN PLATELET VOLUME 11.5 fl (7.4-10.4); MONO # 0.7 (0.1-0.6); MONO % 6.3 % (1.7-9.3); PLATELET COUNT 172 K/mm3 (130-400); RED BLOOD COUNT 4.82 M/mm3 (4.10-5.30); REDCELL DISTRIBUTION WIDTH-CV 13.4 % (11.5-14.5)
[2017-11-03 18:23] LABS: MUCOUS Present /lpf; PH 5 (5-8); SQUAMOUS EPITHELIAL 0-2 /hpf; URINE APPEARANCE Clear; URINE BACTERIA None Seen /hpf; URINE BILIRUBIN Negative (NEGATIVE); URINE BLOOD Negative (NEGATIVE); URINE COLOR Yellow; URINE GLUCOSE Negative (NEGATIVE); URINE KETONE Negative (NEGATIVE); URINE LEUKOCYTE ESTERASE Negative (NEGATIVE); URINE NITRATE Negative (NEGATIVE); URINE PROTEIN(semi-quant) Negative (NEGATIVE); URINE RBC None Seen /hpf; URINE UROBILINOGEN Negative (NEGATIVE); URINE WBC 0-2 /hpf
[2017-11-03 18:24] LABS: ALBUMIN 3.6 gm/dL (3.5-5.0); BILIRUBIN,TOTAL 0.4 mg/dL (0.0-1.0); CALCIUM 8.3 mg/dL (8.4-10.2); CREATININE, serum 0.7 mg/dL (0.52-1.25); POTASSIUM 3.7 mmol/L (3.4-5.0)
[2017-11-03] MEDS ORDERED: VALIUM 5MG T5 MG/TAB PO (21:30)
[2017-11-03 21:38] VITALS: BP 138/91; PULSE 68
== END 2017-11-03 21:39 | disposition home or self-care (01) ==
LOC: COL.ER 17:26
PROVIDERS: Nurse Practitioner Primary Care
DX: M54.5 Low back pain (principal); R25.2 Cramp and spasm; G43.909 Migraine, unspecified, not intractable, without status migrainosus
CPT/HCPCS: J1885; J2270; J2360; Q9967

== ENCOUNTER → 2017-12-04 | Outpatient (CLI) | payer MEDICAID ==
[~2017-12-04] MED LIST changes: +VALIUM 5MG T5 MG/TAB PO
== END ==
LOC: COL.RAD 10:30
DX: G43.909 Migraine, unspecified, not intractable, without status migrainosus (principal)

== ENCOUNTER 2017-12-29 17:01 | Emergency (ER) | payer MEDICAID ==
[~2017-12-29] VITALS: Ht 167.6 cm; Wt 122.3 kg
[2017-12-29 17:07] VITALS: BP 141/60; TEMP 97.6
[2017-12-29 17:51] LABS: COLLECTION METHOD CLEAN CATCH
[2017-12-29 17:58] LABS: BASO # 0.1 (0.0-0.2); BASO % 0.8 % (0.0-2.0); EOS # 0.3 (0.0-0.7); HEMOGLOBIN 14.6 g/dl (12.5-16.0); LYMPH # 3.6 (1.2-3.4); LYMPH % 36.6 % (20.0-51.0); MEAN CELL VOLUME 89 fl (80.0-100.0); MEAN CORPUSCULAR HEMOGLOBIN 30 pg (27.0-31.0); MEAN CORPUSCULAR HGB CONC 34 g/dl (33.0-37.0); MEAN PLATELET VOLUME 11.4 fl (7.4-10.4); MONO # 0.8 (0.1-0.6); MONO % 7.9 % (1.7-9.3); PLATELET COUNT 228 K/mm3 (130-400); RED BLOOD COUNT 4.83 M/mm3 (4.10-5.30); REDCELL DISTRIBUTION WIDTH-CV 13.1 % (11.5-14.5)
[2017-12-29 18:01] LABS: MUCOUS Present /lpf; PH 6 (5-8); SQUAMOUS EPITHELIAL 0-2 /hpf; URINE APPEARANCE Clear; URINE BACTERIA None Seen /hpf; URINE BILIRUBIN Negative (NEGATIVE); URINE BLOOD Negative (NEGATIVE); URINE COLOR Yellow; URINE GLUCOSE Negative (NEGATIVE); URINE KETONE Negative (NEGATIVE); URINE LEUKOCYTE ESTERASE Negative (NEGATIVE); URINE NITRATE Negative (NEGATIVE); URINE PROTEIN(semi-quant) 1+ (NEGATIVE); URINE RBC 0-2 /hpf; URINE UROBILINOGEN Negative (NEGATIVE)
[2017-12-29 18:06] LABS: ALBUMIN 4.1 gm/dL (3.5-5.0); BILIRUBIN,TOTAL 0.3 mg/dL (0.0-1.0); CREATININE, serum 0.67 mg/dL (0.52-1.25); POTASSIUM 3.6 mmol/L (3.4-5.0)
[2017-12-29] MEDS ORDERED: NEXIUM 20MG20 MG PO (18:55)
[2017-12-29] MEDS ORDERED: PHENERGAN 25 TA25 MG PO (18:55)
[2017-12-29 19:15] VITALS: PULSE 80
== END 2017-12-29 19:15 | disposition home or self-care (01) ==
LOC: COL.ER 17:01
PROVIDERS: Emergency Medicine
DX: R10.12 Left upper quadrant pain (principal); Z98.890 Other specified postprocedural states; Z90.49 Acquired absence of other specified parts of digestive tract; Z87.442 Personal history of urinary calculi
CPT/HCPCS: C9113; J0780; J1170; J7030; Q9967

== ENCOUNTER 2018-01-04 19:38 | Emergency (ER) | payer MEDICAID ==
[~2018-01-04] VITALS: Ht 167.6 cm; Wt 122.3 kg
[~2018-01-04 19:38] MED LIST changes: +NEXIUM 20MG20 MG PO
[2018-01-04 19:43] VITALS: TEMP 98
[2018-01-04] MEDS ORDERED: BENADRYL25 M2 PO (20:50)
[2018-01-04 20:52] VITALS: BP 128/75; PULSE 83
== END 2018-01-04 20:52 | disposition home or self-care (01) ==
LOC: COL.ER 19:38
DX: T63.461A Toxic effect of venom of wasps, accidental (unintentional), initial encounter (principal)
CPT/HCPCS: J1100; J1200

== ENCOUNTER → 2018-01-09 | Outpatient (CLI) | payer MEDICAID ==
[~2018-01-09] MED LIST changes: +BENADRYL25 M2 PO
== END ==
LOC: COL.LAB 14:34
DX: R21 Rash and other nonspecific skin eruption (principal)

== ENCOUNTER 2018-01-18 14:02 | Emergency (ER) | payer MEDICAID ==
[~2018-01-18] VITALS: Ht 167.6 cm; Wt 120.5 kg
[2018-01-18 14:22] VITALS: BP 123/69; TEMP 98.4
[2018-01-18] MEDS ORDERED: LIDODERM 5% PATC1 EA TP (16:04)
[2018-01-18] MEDS ORDERED: SKELAXIN 800MG800 MG PO (16:04)
[2018-01-18 16:19] VITALS: PULSE 74
== END 2018-01-18 16:19 | disposition home or self-care (01) ==
LOC: COL.ER 14:02
DX: S16.1XXA Strain of muscle, fascia and tendon at neck level, initial encounter (principal); M54.6 Pain in thoracic spine; F32.9 Major depressive disorder, single episode, unspecified; F41.9 Anxiety disorder, unspecified; G43.909 Migraine, unspecified, not intractable, without status migrainosus; Z88.5 Allergy status to narcotic agent; Z98.890 Other specified postprocedural states; X50.0XXA Overexertion from strenuous movement or load, initial encounter
CPT/HCPCS: J1885

== ENCOUNTER 2018-01-24 09:13 | Outpatient (CLI) | payer MEDICAID ==
[2018-01-24] VITALS (7 sets, daily range): BP systolic 106–138; BP diastolic 50–68; PULSE 49–76
[~2018-01-24] VITALS: Ht 167.6 cm; Wt 124.0 kg
[~2018-01-24 09:13] MED LIST changes: +LIDODERM 5% PATC1 EA TP
[2018-01-24 11:01] LABS: GLUCOSE,CSF 60 mg/dL (40-70); TOTAL PROTEIN,CSF 43 mg/dL (15-45)
[2018-01-24 11:19] LABS: CSF APPEARANCE CLEAR; CSF COLOR COLORLESS; CSF MONONUCLEAR 0 % (70-100); CSF POLYMORPHONUCLEAR 0 % (0-6); CSF RBC 4 /mm3 (0-0)
[2018-01-25] MEDS ORDERED: TYLENOL 500MG500 MG PO (11:16)
[2018-01-25] MEDS ORDERED: FIORICET 325 MG1 TA1 PO ×2 (15:35→16:01)
[2018-01-25] MEDS ORDERED: MEDROL 4MG DOSPA4 MG PO (16:01)
[2018-01-25] MEDS ORDERED: PHENERGAN 25 TA25 MG PO (16:01)
[2018-01-26 16:25] LABS: CSF OLIG BD INTERPRETATION 0 bands (<4); CSF OLIGOCLONAL BANDING 0 bands (()); SE OLIGOCLONAL BANDING 0 bands (())
== END 2018-01-24 13:29 | disposition home or self-care (01) ==
LOC: COL.RAD 09:13
PROVIDERS: Psychiatry & Neurology Neurology
DX: R51 Headache (principal); R90.82 White matter disease, unspecified; R93.0 Abnormal findings on diagnostic imaging of skull and head, not elsewhere classified

== ENCOUNTER 2018-01-25 10:38 | Emergency (ER) | payer MEDICAID ==
[~2018-01-25] VITALS: Ht 167.6 cm; Wt 122.7 kg
[2018-01-25 10:50] VITALS: TEMP 97.6
[2018-01-25] MEDS ORDERED: TYLENOL 500MG500 MG PO (11:16)
[2018-01-25] MEDS ORDERED: FIORICET 325 MG1 TA1 PO ×2 (15:35→16:01)
[2018-01-25] MEDS ORDERED: PHENERGAN 25 TA25 MG PO (16:01)
[2018-01-25] MEDS ORDERED: MEDROL 4MG DOSPA4 MG PO (16:01)
[2018-01-25 16:36] VITALS: BP 129/71; PULSE 90
== END 2018-01-25 16:55 | disposition home or self-care (01) ==
LOC: COL.ER 10:38
DX: G97.1 Other reaction to spinal and lumbar puncture (principal); G43.909 Migraine, unspecified, not intractable, without status migrainosus; F32.9 Major depressive disorder, single episode, unspecified; F41.9 Anxiety disorder, unspecified; E66.9 Obesity, unspecified; Z79.891 Long term (current) use of opiate analgesic; Z98.890 Other specified postprocedural states; Z68.41 Body mass index [BMI] 40.0-44.9, adult
CPT/HCPCS: J0780; J1170; J1885; J7030

== ENCOUNTER 2018-02-17 13:38 | Emergency (ER) | payer MEDICAID ==
[~2018-02-17] VITALS: Ht 167.6 cm; Wt 122.3 kg
[~2018-02-17 13:38] MED LIST changes: +FIORICET 325 MG1 TA1 PO; +MEDROL 4MG DOSPA4 MG PO
[2018-02-17 13:48] VITALS: BP 129/64; TEMP 97.8
[2018-02-17] MEDS ORDERED: SKELAXIN 800MG800 MG PO (15:30)
[2018-02-17 16:19] VITALS: PULSE 99
== END 2018-02-17 16:19 | disposition home or self-care (01) ==
LOC: COL.ER 13:38
DX: G89.29 Other chronic pain (principal); M54.5 Low back pain; M25.551 Pain in right hip; G43.909 Migraine, unspecified, not intractable, without status migrainosus; F41.9 Anxiety disorder, unspecified; F32.9 Major depressive disorder, single episode, unspecified; Z88.5 Allergy status to narcotic agent; Z90.49 Acquired absence of other specified parts of digestive tract; Z87.891 Personal history of nicotine dependence
CPT/HCPCS: J1885

== ENCOUNTER → 2018-04-09 | Outpatient (CLI) | payer MEDICAID | LOC: ZCOL.LAB 16:42 | DX: R06.02 Shortness of breath (principal) ==

== ENCOUNTER → 2018-04-10 | Outpatient (CLI) | payer MEDICAID ==
[~2018-04-10] MED LIST changes: +PREDNISONE20 MG PO
== END ==
LOC: COL.RAD 15:19
DX: R06.02 Shortness of breath (principal)

== ENCOUNTER 2018-04-15 18:42 | Emergency (ER) | payer MEDICAID ==
[~2018-04-15] VITALS: Ht 167.6 cm; Wt 123.2 kg
[~2018-04-15 18:42] MED LIST changes: -PREDNISONE20 MG PO
[2018-04-15 18:53] VITALS: BP 146/70; TEMP 98.4
[2018-04-15] MEDS ORDERED: PREDNISONE20 MG PO (19:22)
[2018-04-15 19:56] VITALS: PULSE 79
== END 2018-04-15 20:00 | disposition home or self-care (01) ==
LOC: COL.ER 18:42
DX: R21 Rash and other nonspecific skin eruption (principal); B08.8 Other specified viral infections characterized by skin and mucous membrane lesions
CPT/HCPCS: J7512

== ENCOUNTER → 2018-05-17 | Outpatient (CLI) | payer MEDICAID ==
[~2018-05-17] MED LIST changes: +PREDNISONE20 MG PO
== END ==
LOC: COL.PUL 11:18
DX: R06.02 Shortness of breath (principal)

== ENCOUNTER → 2018-07-19 | Outpatient (CLI) | payer MEDICAID | LOC: COL.RAD 10:30 | DX: M54.2 Cervicalgia (principal); R20.0 Anesthesia of skin ==

== ENCOUNTER 2018-12-18 19:24 | Emergency (ER) | payer MEDICAID ==
[~2018-12-18] VITALS: Ht 167.6 cm; Wt 120.0 kg
[2018-12-18 19:40] VITALS: BP 132/82; TEMP 98.5
[2018-12-18] MEDS ORDERED: NORCO 325 MG-51 TAB PO (20:07)
[2018-12-18] MEDS ORDERED: MEDROL 4MG DOSPA4 MG PO (20:19)
[2018-12-18 20:20] VITALS: PULSE 77
== END 2018-12-18 20:20 | disposition home or self-care (01) ==
LOC: COL.ER 19:24
DX: M54.41 Lumbago with sciatica, right side (principal); M54.16 Radiculopathy, lumbar region; Z87.891 Personal history of nicotine dependence
CPT/HCPCS: J7512

== ENCOUNTER → 2020-04-28 | Outpatient (CLI) | payer MEDICAID ==
[~2020-04-28] MED LIST changes: +NORCO 325 MG-51 TAB PO
== END ==
LOC: COL.RAD 13:30
DX: R90.82 White matter disease, unspecified (principal); G93.2 Benign intracranial hypertension

== ENCOUNTER 2020-05-03 01:11 | Emergency (ER) | payer MEDICAID ==
[~2020-05-03] VITALS: Ht 167.6 cm; Wt 90.0 kg
[2020-05-03 01:14] VITALS: TEMP 97.3
[2020-05-03 01:57] LABS: BASO % 0.3 % (0.0-2.0); EOS # 0.1 (0.0-0.7); EOS % 1.5 % (0-4.0); GRAN # 2.7 (1.4-6.5); GRAN % 41.1 % (42.2-75.2); HEMATOCRIT 41.2 % (37.0-47.0); HEMOGLOBIN 13.6 g/dl (12.5-16.0); LYMPH # 3.3 (1.2-3.4); LYMPH % 48.9 % (20.0-51.0); MEAN CELL VOLUME 93 fl (80.0-100.0); MEAN CORPUSCULAR HEMOGLOBIN 31 pg (27.0-31.0); MEAN CORPUSCULAR HGB CONC 33 g/dl (33.0-37.0); MEAN PLATELET VOLUME 12.3 fl (7.4-10.4); MONO # 0.5 (0.1-0.6); PLATELET COUNT 137 K/mm3 (130-400); RED BLOOD COUNT 4.45 M/mm3 (4.10-5.30); REDCELL DISTRIBUTION WIDTH-CV 12.5 % (11.5-14.5)
[2020-05-03 02:08] LABS: ALBUMIN 4.2 gm/dL (3.5-5.0); BILIRUBIN,TOTAL 0.6 mg/dL (0.0-1.0); CALCIUM 8.9 mg/dL (8.4-10.2); CREATININE, serum 0.6 (0.52-1.25); POTASSIUM 3.5 mmol/L (3.4-5.0); TOTAL PROTEIN 6.8 gm/dL (6.4-8.2)
[2020-05-03] MEDS ORDERED: MEDROL 4MG DOSPA4 MG PO (02:37)
[2020-05-03 02:50] VITALS: BP 109/64; PULSE 45
== END 2020-05-03 02:53 | disposition home or self-care (01) ==
LOC: COL.ER 01:11
PROVIDERS: Emergency Medicine
DX: R25.2 Cramp and spasm (principal); M79.10 Myalgia, unspecified site; Z90.49 Acquired absence of other specified parts of digestive tract; Z98.84 Bariatric surgery status; Z87.891 Personal history of nicotine dependence; Z32.02 Encounter for pregnancy test, result negative; Z88.6 Allergy status to analgesic agent; Z88.8 Allergy status to other drugs, medicaments and biological substances
CPT/HCPCS: J2060; J2930; J7030

== ENCOUNTER → 2020-06-14 | Outpatient (CLI) | payer MEDICAID ==
[~2020-06-14] MED LIST changes: +B-121000 MCG PO; +NEURONTIN100 MG/CAP PO; +OMNICEF 300MG300 MG PO; +ONE-A-DAY ESSE1 EACH PO; +VITAMIN D 50,1.25 MG PO
== END ==
LOC: COL.CAR 08:00
DX: U07.1 COVID-19 (principal)

== ENCOUNTER 2020-07-26 09:53 | Outpatient (CLI) | payer MEDICAID ==
[2020-07-26] VITALS (7 sets, daily range): BP systolic 109–122; BP diastolic 50–62; PULSE 44–59; TEMP 98
[~2020-07-26] VITALS: Ht 167.7 cm; Wt 80.5 kg
[~2020-07-26 09:53] MED LIST changes: -B-121000 MCG PO; -NEURONTIN100 MG/CAP PO; -OMNICEF 300MG300 MG PO; -ONE-A-DAY ESSE1 EACH PO; -VITAMIN D 50,1.25 MG PO
[2020-07-26] MEDS ORDERED: VITAMIN D 50,1.25 MG PO (11:26)
[2020-07-26] MEDS ORDERED: NEURONTIN100 MG/CAP PO (11:27)
[2020-07-26] MEDS ORDERED: ONE-A-DAY ESSE1 EACH PO (11:28)
[2020-07-26] MEDS ORDERED: B-121000 MCG PO (11:30)
--- NOTE | 2020-07-26 14:45 | NUR ---
Report from [facility]. Transferred by to [facility] and pt ambulated to bed with steady gait. NASEEM.
--- NOTE | 2020-07-26 16:00 | NUR ---
INT discontinued intact. VSS. Ambulated without dizziness. Discharge instructions given . Transferred to private car by regulo
== END 2020-07-26 16:05 | disposition home or self-care (01) ==
LOC: COL.CAR 09:53
DX: R42 Dizziness and giddiness (principal); R00.1 Bradycardia, unspecified; G43.909 Migraine, unspecified, not intractable, without status migrainosus; F32.9 Major depressive disorder, single episode, unspecified; Z88.8 Allergy status to other drugs, medicaments and biological substances

== ENCOUNTER → 2020-10-07 | Outpatient (CLI) | payer MEDICAID ==
[~2020-10-07] MED LIST changes: +B-121000 MCG PO; +NEURONTIN100 MG/CAP PO; +OMNICEF 300MG300 MG PO; +ONE-A-DAY ESSE1 EACH PO; +VITAMIN D 50,1.25 MG PO
== END ==
LOC: COL.CARD 10:00
DX: R20.2 Paresthesia of skin (principal); R42 Dizziness and giddiness

== ENCOUNTER 2020-10-11 09:15 | Outpatient (RCR) | payer MEDICAID ==
[~2020-10-11 09:15] MED LIST changes: -OMNICEF 300MG300 MG PO
== END 2020-10-28 08:51 | disposition home or self-care (01) ==
LOC: WSOT 09:15
DX: G56.21 Lesion of ulnar nerve, right upper limb (principal)

== ENCOUNTER 2020-12-29 16:10 | Emergency (ER) | payer MEDICAID ==
[~2020-12-29] VITALS: Ht 165.1 cm; Wt 75.0 kg
[2020-12-29 17:07] LABS: COLLECTION METHOD CLEAN CATCH
[2020-12-29 17:33] LABS: MUCOUS Present /lpf; PH 6 (5-8); SQUAMOUS EPITHELIAL 0-2 /hpf; URINE APPEARANCE Clear; URINE BACTERIA None Seen /hpf; URINE BILIRUBIN Negative (NEGATIVE); URINE BLOOD Negative (NEGATIVE); URINE COLOR Yellow; URINE GLUCOSE Negative (NEGATIVE); URINE KETONE Negative (NEGATIVE); URINE LEUKOCYTE ESTERASE Trace (NEGATIVE); URINE NITRATE Negative (NEGATIVE); URINE PROTEIN(semi-quant) 1+ (NEGATIVE); URINE UROBILINOGEN >=4.0 mg/dL (NEGATIVE)
[2020-12-29 18:39] LABS: BASO # 0.1 (0.0-0.2); BASO % 0.7 % (0.0-2.0); EOS # 0.2 (0.0-0.7); EOS % 2.1 % (0-4.0); GRAN # 5.6 (1.4-6.5); GRAN % 57.1 % (42.2-75.2); HEMATOCRIT 37.8 % (37.0-47.0); HEMOGLOBIN 12.6 g/dl (12.5-16.0); LYMPH # 3.4 (1.2-3.4); LYMPH % 34.2 % (20.0-51.0); MEAN CELL VOLUME 94 fl (80.0-100.0); MEAN CORPUSCULAR HEMOGLOBIN 31 pg (27.0-31.0); MEAN CORPUSCULAR HGB CONC 33 g/dl (33.0-37.0); MEAN PLATELET VOLUME 11.8 fl (7.4-10.4); MONO # 0.6 (0.1-0.6); MONO % 5.6 % (1.7-9.3); PLATELET COUNT 158 K/mm3 (130-400); RED BLOOD COUNT 4.04 M/mm3 (4.10-5.30); REDCELL DISTRIBUTION WIDTH-CV 12.8 % (11.5-14.5)
[2020-12-29 18:51] LABS: ALBUMIN 3.7 gm/dL (3.5-5.0); BILIRUBIN,TOTAL 0.4 mg/dL (0.2-1.2); C-REACTIVE PROTEIN 0.1 mg/dL (0.00-0.50); CALCIUM 8.7 mg/dL (8.4-10.2); CREATININE, serum 0.75 mg/dL (0.57-1.11); POTASSIUM 3.7 mmol/L (3.5-4.5); TOTAL PROTEIN 6.2 gm/dL (6.2-8.1)
[2020-12-29] MEDS ORDERED: OMNICEF 300MG300 MG PO (19:32)
[2020-12-29 19:48] VITALS: BP 121/66; PULSE 72; TEMP 97.6
== END 2020-12-29 19:55 | disposition home or self-care (01) ==
LOC: COL.ER 16:10
PROVIDERS: Family Medicine
DX: N39.0 Urinary tract infection, site not specified (principal)
CPT/HCPCS: J2405; J3010; J7120

== ENCOUNTER → 2021-01-12 | Outpatient (CLI) | payer MEDICAID ==
[~2021-01-12] MED LIST changes: +OMNICEF 300MG300 MG PO
== END ==
LOC: COL.RAD 09:45
DX: M54.17 Radiculopathy, lumbosacral region (principal)

== ENCOUNTER 2021-01-16 15:19 | Emergency (ER) | payer MEDICAID ==
[~2021-01-16] VITALS: Ht 165.1 cm; Wt 74.1 kg
[2021-01-16 15:32] VITALS: BP 115/54; TEMP 98.2
[2021-01-16 16:53] LABS: COLLECTION METHOD CLEAN CATCH
[2021-01-16 17:08] LABS: MUCOUS Present /lpf; PH 6 (5-8); SQUAMOUS EPITHELIAL 0-2 /hpf; URINE APPEARANCE Clear; URINE BACTERIA None Seen /hpf; URINE BILIRUBIN Negative (NEGATIVE); URINE BLOOD 2+ (NEGATIVE); URINE COLOR Yellow; URINE GLUCOSE Negative (NEGATIVE); URINE KETONE Negative (NEGATIVE); URINE LEUKOCYTE ESTERASE Negative (NEGATIVE); URINE NITRATE Negative (NEGATIVE); URINE PROTEIN(semi-quant) Negative (NEGATIVE); URINE RBC 0-2 /hpf; URINE UROBILINOGEN >=4.0 mg/dL (NEGATIVE)
[2021-01-16 17:41] LABS: BASO # 0.1 K/mm3 (0.0-0.2); BASO % 1.3 % (0.0-2.0); EOS # 0.2 K/mm3 (0.0-0.7); EOS % 2.4 % (0-4.0); GRAN # 4.5 K/mm3 (1.4-6.5); GRAN % 53.7 % (42.2-75.2); HEMATOCRIT 41.1 % (37.0-47.0); HEMOGLOBIN 13.2 g/dl (12.5-16.0); LYMPH % 35.6 % (20.0-51.0); MEAN CELL VOLUME 95 fl (80.0-100.0); MEAN CORPUSCULAR HEMOGLOBIN 30 pg (27.0-31.0); MEAN CORPUSCULAR HGB CONC 32 g/dl (33.0-37.0); MEAN PLATELET VOLUME 11.9 fl (7.4-10.4); MONO # 0.6 K/mm3 (0.1-0.6); MONO % 6.8 % (1.7-9.3); PLATELET COUNT 172 K/mm3 (130-400); RED BLOOD COUNT 4.34 M/mm3 (4.10-5.30); REDCELL DISTRIBUTION WIDTH-CV 12.7 % (11.5-14.5)
[2021-01-16 17:59] LABS: ALBUMIN 3.9 gm/dL (3.5-5.0); BILIRUBIN,TOTAL 0.8 mg/dL (0.2-1.2); C-REACTIVE PROTEIN 0.1 mg/dL (0.00-0.50); CALCIUM 9.3 mg/dL (8.4-10.2); CREATININE, serum 0.74 mg/dL (0.57-1.11); POTASSIUM 4.1 mmol/L (3.5-4.5); TOTAL PROTEIN 6.5 gm/dL (6.2-8.1)
[2021-01-16 18:16] VITALS: PULSE 64
== END 2021-01-16 18:16 | disposition home or self-care (01) ==
LOC: COL.ER 15:19
PROVIDERS: Physician Assistant
DX: R10.30 Lower abdominal pain, unspecified (principal); F41.9 Anxiety disorder, unspecified; F32.A Depression, unspecified; Z98.84 Bariatric surgery status; Z90.49 Acquired absence of other specified parts of digestive tract; Z32.02 Encounter for pregnancy test, result negative; Z88.5 Allergy status to narcotic agent; Z79.899 Other long term (current) drug therapy

== ENCOUNTER 2021-04-17 18:16 | Emergency (ER) | payer MEDICAID ==
[~2021-04-17] VITALS: Ht 165.1 cm; Wt 72.7 kg
[2021-04-17 22:54] VITALS: BP 128/79; PULSE 89; TEMP 97.9
== END 2021-04-17 22:59 | disposition home or self-care (01) ==
LOC: COL.ER 18:16
DX: R51.9 Headache, unspecified (principal); R53.83 Other fatigue; Z88.6 Allergy status to analgesic agent
CPT/HCPCS: J1200; J2765; J7030

== ENCOUNTER 2021-05-05 17:25 | Emergency (ER) | payer MEDICAID ==
[~2021-05-05] VITALS: Ht 167.6 cm; Wt 72.7 kg
[2021-05-05 17:43] VITALS: TEMP 98.1
[2021-05-05 18:36] LABS: TRICYCLIC ANTIDEPRESS URINE NEGATIVE
[2021-05-05 18:46] LABS: BASO # 0.1 K/mm3 (0.0-0.2); BASO % 0.6 % (0.0-2.0); EOS # 0.2 K/mm3 (0.0-0.7); EOS % 1.8 % (0.0-4.0); GRAN # 5.7 K/mm3 (1.4-6.5); HEMATOCRIT 39.8 % (37.0-47.0); HEMOGLOBIN 13.3 g/dl (12.5-16.0); LYMPH # 3.6 K/mm3 (1.2-3.4); LYMPH % 35.5 % (20.0-51.0); MEAN CELL VOLUME 91 fl (80.0-100.0); MEAN CORPUSCULAR HEMOGLOBIN 30 pg (27-31); MEAN CORPUSCULAR HGB CONC 33 g/dl (33.0-37.0); MEAN PLATELET VOLUME 11.6 fl (7.4-10.4); MONO # 0.5 K/mm3 (0.1-0.6); MONO % 4.9 % (1.7-9.3); PLATELET COUNT 172 K/mm3 (130-400); RED BLOOD COUNT 4.39 M/mm3 (4.10-5.30); REDCELL DISTRIBUTION WIDTH-CV 12.6 % (11.5-14.5)
[2021-05-05 19:03] LABS: ALANINE AMINOTRANSFERASE 9 U/L (0-55); ALKALINE PHOSPHATASE 60 U/L (40-150); ANION GAP 7 mmol/L (7-16); AST,SGOT 14 U/L (5-34); BILIRUBIN,TOTAL 0.4 mg/dL (0.2-1.2); BLOOD UREA NITROGEN 16 mg/dL (7-19); CALCIUM 8.9 mg/dL (8.4-10.2); CARBON DIOXIDE 23 mmol/L (22-29); CHLORIDE 109 mmol/L (98-107); CREATININE, serum 0.77 mg/dL (0.57-1.11); GLUCOSE 95 mg/dL (70-99); LIPASE 43 U/L (8-78); POTASSIUM 3.5 mmol/L (3.5-4.5); SODIUM 139 mmol/L (136-145)
[2021-05-05 19:10] LABS: TROPONIN-I < 0.010 ng/mL (0.00-0.033)
[2021-05-05 20:43] VITALS: BP 120/68; PULSE 51
== END 2021-05-05 21:09 | disposition home or self-care (01) ==
LOC: COL.ER 17:25
PROVIDERS: Nurse Practitioner
DX: R07.9 Chest pain, unspecified (principal); G43.909 Migraine, unspecified, not intractable, without status migrainosus; Z20.822 Contact with and (suspected) exposure to COVID-19; Z79.899 Other long term (current) drug therapy
CPT/HCPCS: J7030

== ENCOUNTER 2021-05-24 11:49 | Emergency (ER) | payer SELFPAY ==
[~2021-05-24] VITALS: Ht 167.6 cm; Wt 72.7 kg
[2021-05-24 12:05] VITALS: BP 109/68; TEMP 98.1
[2021-05-24] MEDS ORDERED: LYRICA 75MG CAP75 MG PO (12:11)
[2021-05-24] MEDS ORDERED: ROBAXIN 50500 MG/TAB PO (12:12)
[2021-05-24] MEDS ORDERED: MOBIC15 MG PO (12:12)
[2021-05-24] MEDS ORDERED: UBRELVY50 MG PO (12:13)
[2021-05-24] MEDS ORDERED: FIORICET 325 MG1 TA1 PO (12:13)
[2021-05-24] MEDS ORDERED: NORFLEX 10100 MG/TAB PO (12:30)
[2021-05-24] MEDS ORDERED: LIDODERM 5% PATC1 EA TP (12:32)
[2021-05-24 13:15] VITALS: PULSE 67
== END 2021-05-24 13:15 | disposition home or self-care (01) ==
LOC: COL.ER 11:49
DX: S39.012A Strain of muscle, fascia and tendon of lower back, initial encounter (principal); X50.0XXA Overexertion from strenuous movement or load, initial encounter
CPT/HCPCS: J2360

== ENCOUNTER 2021-07-09 18:45 | Emergency (ER) | payer MEDICAID ==
[~2021-07-09] VITALS: Ht 167.6 cm; Wt 72.7 kg
[~2021-07-09 18:45] MED LIST changes: +LYRICA 75MG CAP75 MG PO; +MOBIC15 MG PO; +NORFLEX 10100 MG/TAB PO; +UBRELVY50 MG PO
[2021-07-09 20:07] LABS: COLLECTION METHOD CLEAN CATCH
[2021-07-09 20:17] LABS: MUCOUS Present (NOT PRESENT); PH 5 (5-8); SQUAMOUS EPITHELIAL 0-2 /hpf (0-10); URINE APPEARANCE Hazy (CLEAR/HAZY); URINE BACTERIA None Seen /hpf (NONE SEEN); URINE BILIRUBIN Negative (NEGATIVE); URINE BLOOD Negative (NEGATIVE); URINE COLOR Yellow (YELLOW); URINE GLUCOSE Negative (NEGATIVE); URINE KETONE Negative (NEGATIVE); URINE LEUKOCYTE ESTERASE Negative (NEGATIVE); URINE NITRATE Negative (NEGATIVE); URINE PROTEIN(semi-quant) Negative (NEGATIVE); URINE RBC 0-2 /hpf (0-2); URINE UROBILINOGEN Negative (NEGATIVE)
[2021-07-09 22:15] VITALS: BP 97/67; PULSE 85; TEMP 98.4
== END 2021-07-09 22:20 | disposition home or self-care (01) ==
LOC: COL.ER 18:45
PROVIDERS: Physician Assistant
DX: R11.2 Nausea with vomiting, unspecified (principal); R19.7 Diarrhea, unspecified; Z32.02 Encounter for pregnancy test, result negative; Z90.49 Acquired absence of other specified parts of digestive tract; Z98.84 Bariatric surgery status
CPT/HCPCS: J2405; J7030

== ENCOUNTER → 2021-08-31 | Outpatient (CLI) | payer MEDICAID | LOC: MHCPAIN 10:12 | DX: M79.18 Myalgia, other site (principal); M54.9 Dorsalgia, unspecified; M79.2 Neuralgia and neuritis, unspecified; G89.29 Other chronic pain | CPT/HCPCS: G0463 ==

== ENCOUNTER 2021-09-26 18:55 | Emergency (ER) | payer OTHER, MEDICAID ==
[~2021-09-26] VITALS: Ht 165.1 cm; Wt 72.7 kg
[2021-09-26 19:12] VITALS: TEMP 97.9
[2021-09-26 22:30] VITALS: BP 100/55; PULSE 84
== END 2021-09-26 22:17 | disposition home or self-care (01) ==
LOC: COL.ER 18:55
DX: S09.90XA Unspecified injury of head, initial encounter (principal); Z28.310 Unvaccinated for COVID-19; W20.8XXA Other cause of strike by thrown, projected or falling object, initial encounter; Y92.59 Other trade areas as the place of occurrence of the external cause; Y99.0 Civilian activity done for income or pay; Y92.512 Supermarket, store or market as the place of occurrence of the external cause

== ENCOUNTER 2022-07-27 17:59 | Emergency (ER) | payer SELFPAY ==
[~2022-07-27] VITALS: Ht 167.6 cm; Wt 80.9 kg
[2022-07-27 18:11] VITALS: TEMP 98.1
[2022-07-27] MEDS ORDERED: ROBAXIN 50500 MG/TAB PO (18:59)
[2022-07-27 19:21] VITALS: BP 129/81; PULSE 80
== END 2022-07-27 19:21 | disposition home or self-care (01) ==
LOC: COL.ER 17:59
DX: M25.512 Pain in left shoulder (principal); Z88.6 Allergy status to analgesic agent; V89.2XXA Person injured in unspecified motor-vehicle accident, traffic, initial encounter; Y92.410 Unspecified street and highway as the place of occurrence of the external cause

== ENCOUNTER 2023-05-03 18:00 | Emergency (ER) | payer MEDICAID ==
[~2023-05-03] VITALS: Ht 167.6 cm; Wt 72.7 kg
[2023-05-03 18:14] VITALS: BP 110/63; PULSE 67; TEMP 98.2
[2023-05-03] MEDS ORDERED: Dicyclomine 10 MG CAP PO ONE (18:30)
[2023-05-03] MEDS ORDERED: Ondansetron 4 MG/2 ML VIAL IV ONE (18:30)
[2023-05-03] MEDS ORDERED: NS 1,000 ML IV ONE (18:30)
[2023-05-03 18:48] LABS: COLLECTION METHOD CLEAN CATCH
[2023-05-03 18:51] LABS: BASO # 0.1 K/mm3 (0.0-0.2); BASO % 0.9 % (0.0-2.0); EOS # 0.1 K/mm3 (0.0-0.7); GRAN # 5.8 K/mm3 (1.4-6.5); GRAN % 58.4 % (42.2-75.2); HEMATOCRIT 39.9 % (37.0-47.0); HEMOGLOBIN 12.1 g/dl (12.5-16.0); LYMPH # 3.3 K/mm3 (1.2-3.4); LYMPH % 33.9 % (20.0-51.0); MEAN CELL VOLUME 84 fl (80.0-100.0); MEAN CORPUSCULAR HEMOGLOBIN 25 pg (27-31); MEAN CORPUSCULAR HGB CONC 30 g/dl (33.0-37.0); MEAN PLATELET VOLUME 11.8 fl (7.4-10.4); MONO # 0.5 K/mm3 (0.1-0.6); MONO % 5.4 % (1.7-9.3); PLATELET COUNT 234 K/mm3 (130-400); RED BLOOD COUNT 4.78 M/mm3 (4.10-5.30); REDCELL DISTRIBUTION WIDTH-CV 14.8 % (11.5-14.5)
[2023-05-03 19:07] LABS: URINE COLOR Yellow (YELLOW)
[2023-05-03 19:08] LABS: PH 5.5 (5.0-8.5); URINE APPEARANCE Clear (CLEAR/HAZY); URINE GLUCOSE Negative (NEGATIVE); URINE KETONE TRACE (NEGATIVE); URINE PROTEIN(semi-quant) Negative (NEGATIVE); URINE UROBILINOGEN 0.2 E.U/dL (0.2-1.0)
[2023-05-03 19:09] LABS: SQUAMOUS EPITHELIAL 0-2 /hpf (0-10); URINE BLOOD Negative (NEGATIVE); URINE NITRATE Negative (NEGATIVE); URINE RBC 0-2 /hpf (0-2)
[2023-05-03 19:10] LABS: URINE BACTERIA Occasional /hpf (NONE SEEN)
[2023-05-03 19:14] LABS: ALBUMIN 3.4 gm/dL (3.5-5.0); BILIRUBIN,TOTAL 0.2 mg/dL (0.2-1.2); C-REACTIVE PROTEIN 0.04 mg/dL (0.00-0.50); CALCIUM 8.6 mg/dL (8.4-10.2); CREATININE, serum 0.79 mg/dL (0.57-1.11); POTASSIUM 4.1 mmol/L (3.5-4.5); TOTAL PROTEIN 6.3 gm/dL (6.2-8.1)
[2023-05-03] MEDS ORDERED: droPERidol 2.5 MG/ML 2 ML VIAL IV ONE (19:15)
[2023-05-03] MEDS ORDERED: Home Ondansetron ODT 4 MG #2 ODT/PACK PO ONE (20:45)
== END 2023-05-03 21:24 | disposition home or self-care (01) ==
LOC: COL.ER 18:00
PROVIDERS: Nurse Practitioner
DX: R10.84 Generalized abdominal pain (principal); R11.0 Nausea; Z90.49 Acquired absence of other specified parts of digestive tract; Z98.84 Bariatric surgery status
CPT/HCPCS: J1790; J2405; J7030

== ENCOUNTER 2023-06-13 11:19 | Emergency (ER) | payer MEDICAID ==
[~2023-06-13] VITALS: Ht 167.6 cm; Wt 80.0 kg
[2023-06-13 11:31] VITALS: TEMP 98.2
[2023-06-13 12:20] LABS: STREP A NEGATIVE
[2023-06-13 14:28] LABS: BASO # 0.1 K/mm3 (0.0-0.2); BASO % 0.7 % (0.0-2.0); EOS # 0.1 K/mm3 (0.0-0.7); EOS % 1.1 % (0.0-4.0); GRAN # 5.8 K/mm3 (1.4-6.5); GRAN % 66.7 % (42.2-75.2); LYMPH # 2.3 K/mm3 (1.2-3.4); LYMPH % 25.8 % (20.0-51.0); MEAN CELL VOLUME 82 fl (80.0-100.0); MEAN CORPUSCULAR HGB CONC 30 g/dl (33.0-37.0); MEAN PLATELET VOLUME 11.4 fl (7.4-10.4); MONO # 0.5 K/mm3 (0.1-0.6); MONO % 5.5 % (1.7-9.3); PLATELET COUNT 247 K/mm3 (130-400); RED BLOOD COUNT 3.78 M/mm3 (4.10-5.30); REDCELL DISTRIBUTION WIDTH-CV 14.7 % (11.5-14.5)
[2023-06-13 14:34] LABS: HEMATOCRIT 31.1 % (37.0-47.0); HEMOGLOBIN 9.4 g/dl (12.5-16.0); MEAN CORPUSCULAR HEMOGLOBIN 25 pg (27-31)
[2023-06-13 15:05] LABS: ALBUMIN 3.5 gm/dL (3.5-5.0); BILIRUBIN,TOTAL 0.3 mg/dL (0.2-1.2); CALCIUM 9.5 mg/dL (8.4-10.2); CREATININE, serum 0.7 mg/dL (0.57-1.11); POTASSIUM 4.1 mmol/L (3.5-4.5); TOTAL PROTEIN 6.5 gm/dL (6.2-8.1)
[2023-06-13] MEDS ORDERED: Iohexol 300 - 100 ML VIAL IV ONE (15:35)
[2023-06-13] MEDS ORDERED: NS 100 ML IV SCH (15:36)
[2023-06-13 16:03] LABS: COLLECTION METHOD CLEAN CATCH
[2023-06-13 16:16] LABS: URINE APPEARANCE CLEAR (CLEAR/HAZY); URINE BLOOD NEGATIVE (NEGATIVE); URINE COLOR YELLOW (YELLOW); URINE GLUCOSE NEGATIVE (NEGATIVE); URINE KETONE NEGATIVE (NEGATIVE); URINE NITRATE NEGATIVE (NEGATIVE); URINE PROTEIN(semi-quant) NEGATIVE (NEGATIVE); URINE UROBILINOGEN 0.2 E.U/dL (0.2-1.0)
[2023-06-13] MEDS ORDERED: CEPHALEXIN500 M1 PO (16:20)
[2023-06-13 16:39] VITALS: BP 119/63; PULSE 43
== END 2023-06-13 16:37 | disposition home or self-care (01) ==
LOC: COL.ER 11:19
PROVIDERS: Physician Assistant
DX: J06.9 Acute upper respiratory infection, unspecified (principal); N39.0 Urinary tract infection, site not specified
CPT/HCPCS: Q9967

== ENCOUNTER 2023-06-19 00:02 | Emergency (ER) | payer MEDICAID ==
[~2023-06-19] VITALS: Ht 167.6 cm; Wt 76.4 kg
[~2023-06-19 00:02] MED LIST changes: +CEPHALEXIN500 M1 PO
[2023-06-19 00:04] VITALS: TEMP 97.6
[2023-06-19] MEDS ORDERED: Acetaminophen 325 MG TAB PO ONE (00:30)
[2023-06-19] MEDS ORDERED: predniSONE 20 MG TAB PO ONE (00:30)
[2023-06-19] MEDS ORDERED: PREDNISONE20 MG PO (00:47)
[2023-06-19 01:02] VITALS: BP 117/68; PULSE 60
== END 2023-06-19 01:02 | disposition home or self-care (01) ==
LOC: COL.ER 00:02
DX: M25.562 Pain in left knee (principal)
CPT/HCPCS: J7512

== ENCOUNTER 2023-06-25 11:15 | Emergency (ER) | payer MEDICAID ==
[~2023-06-25] VITALS: Ht 167.6 cm; Wt 79.1 kg
[2023-06-25 11:22] VITALS: TEMP 97.7
[2023-06-25] MEDS ORDERED: LORazepam 2 MG/ML 1 ML VIAL IV ONE (11:45)
[2023-06-25 12:29] LABS: BASO % 0.4 % (0.0-2.0); EOS # 0.1 K/mm3 (0.0-0.7); EOS % 0.7 % (0.0-4.0); GRAN # 4.8 K/mm3 (1.4-6.5); GRAN % 53.5 % (42.2-75.2); HEMOGLOBIN 10.5 g/dl (12.5-16.0); LYMPH # 3.5 K/mm3 (1.2-3.4); LYMPH % 39.2 % (20.0-51.0); MEAN CELL VOLUME 82 fl (80.0-100.0); MEAN CORPUSCULAR HEMOGLOBIN 24 pg (27-31); MEAN CORPUSCULAR HGB CONC 30 g/dl (33.0-37.0); MEAN PLATELET VOLUME 11.4 fl (7.4-10.4); MONO # 0.5 K/mm3 (0.1-0.6); MONO % 5.9 % (1.7-9.3); PLATELET COUNT 277 K/mm3 (130-400); REDCELL DISTRIBUTION WIDTH-CV 14.7 % (11.5-14.5)
[2023-06-25 12:39] LABS: HEMATOCRIT 35.3 % (37.0-47.0)
[2023-06-25 12:42] LABS: ALANINE AMINOTRANSFERASE 47 U/L (0-55); ALKALINE PHOSPHATASE 78 U/L (40-150); ANION GAP 10 mmol/L (7-16); AST,SGOT 113 U/L (5-34); BILIRUBIN,TOTAL 0.5 mg/dL (0.2-1.2); BLOOD UREA NITROGEN 18 mg/dL (7-19); CALCIUM 9.4 mg/dL (8.4-10.2); CHLORIDE 107 mmol/L (98-107); CREATININE, serum 0.81 mg/dL (0.57-1.11); GLUCOSE 108 mg/dL (70-99); MAGNESIUM 2.1 mg/dL (1.6-2.6); POTASSIUM 3.9 mmol/L (3.5-4.5); SODIUM 140 mmol/L (136-145); TOTAL PROTEIN 6.8 gm/dL (6.2-8.1)
[2023-06-25 13:15] LABS: TROPONIN-I < 0.010 ng/mL (0.00-0.033)
[2023-06-25] MEDS ORDERED: diphenhydrAMINE 50 MG/ML 1 ML VIAL IV ONE (13:30)
[2023-06-25] MEDS ORDERED: droPERidol 2.5 MG/ML 2 ML VIAL IV ONE (13:30)
[2023-06-25] MEDS ORDERED: Morphine 4 MG/ML VIAL IV ONE (14:00)
[2023-06-25] MEDS ORDERED: Mag/Al Hydrox/Simeth Susp 30 ML CUP PO ONE (14:00)
[2023-06-25] MEDS ORDERED: Pantoprazole 40 MG in NS 10 ML IV ONE (14:00)
[2023-06-25] MEDS ORDERED: PROTONIX 40MG T40 MG PO (15:08)
[2023-06-25 15:53] VITALS: BP 107/55; PULSE 84
== END 2023-06-25 15:54 | disposition home or self-care (01) ==
LOC: COL.ER 11:15
PROVIDERS: Family Medicine
DX: K21.9 Gastro-esophageal reflux disease without esophagitis (principal); R06.02 Shortness of breath; Z90.49 Acquired absence of other specified parts of digestive tract; Z98.84 Bariatric surgery status
CPT/HCPCS: C9113; J1200; J1790; J2060; J2270

== ENCOUNTER 2023-07-26 23:00 | Emergency (ER) | payer MEDICAID ==
[~2023-07-26] VITALS: Ht 167.6 cm; Wt 80.0 kg
[~2023-07-26 23:00] MED LIST changes: +PROTONIX 40MG T40 MG PO
[2023-07-26 23:03] VITALS: TEMP 98.1
[2023-07-26] MEDS ORDERED: diphenhydrAMINE 50 MG/ML 1 ML VIAL IV ONE (23:30)
[2023-07-26] MEDS ORDERED: Acetaminophen 500 MG TAB PO ONE (23:30)
[2023-07-26] MEDS ORDERED: LR 1,000 ML IV ONE (23:30)
[2023-07-26 23:38] LABS: BASO # 0.1 K/mm3 (0.0-0.2); BASO % 1.1 % (0.0-2.0); EOS # 0.1 K/mm3 (0.0-0.7); EOS % 0.8 % (0.0-4.0); GRAN # 4.4 K/mm3 (1.4-6.5); GRAN % 48.9 % (42.2-75.2); LYMPH # 3.7 K/mm3 (1.2-3.4); LYMPH % 41.1 % (20.0-51.0); MEAN CELL VOLUME 81 fl (80.0-100.0); MEAN CORPUSCULAR HGB CONC 30 g/dl (33.0-37.0); MEAN PLATELET VOLUME 11.7 fl (7.4-10.4); MONO # 0.7 K/mm3 (0.1-0.6); MONO % 7.9 % (1.7-9.3); PLATELET COUNT 219 K/mm3 (130-400); RED BLOOD COUNT 4.04 M/mm3 (4.10-5.30); REDCELL DISTRIBUTION WIDTH-CV 14.7 % (11.5-14.5)
[2023-07-26 23:43] LABS: HEMATOCRIT 32.7 % (37.0-47.0); HEMOGLOBIN 9.9 g/dl (12.5-16.0); MEAN CORPUSCULAR HEMOGLOBIN 25 pg (27-31)
[2023-07-26 23:55] LABS: ALANINE AMINOTRANSFERASE 8 U/L (0-55); ALBUMIN 3.8 g/dL (3.5-5.0); ALKALINE PHOSPHATASE 61 U/L (40-150); ANION GAP 10 mmol/L (7-16); AST,SGOT 15 U/L (5-34); BLOOD UREA NITROGEN 19 mg/dL (7-19); CALCIUM 9.1 mg/dL (8.4-10.2); CHLORIDE 107 mEq/L (98-107); CREATININE, serum 0.78 mg/dL (0.57-1.11); GLUCOSE 89 mg/dL (70-99); LIPASE 51 U/L (8-78); POTASSIUM 4.3 mEq/L (3.5-4.5); SODIUM 140 mEq/L (136-145); TOTAL PROTEIN 6.8 g/dl (6.2-8.1)
[2023-07-27 00:01] LABS: TROPONIN-I < 0.010 ng/mL (0.00-0.033)
[2023-07-27 00:03] LABS: BILIRUBIN,TOTAL 0.2 mg/dL (0.2-1.2)
[2023-07-27 01:34] VITALS: BP 108/71; PULSE 61
[2023-07-27] MEDS ORDERED: Ibuprofen 400 MG TAB PO ONE (01:45)
== END 2023-07-27 01:43 | disposition home or self-care (01) ==
LOC: COL.ER 23:00
PROVIDERS: Emergency Medicine
DX: R51.9 Headache, unspecified (principal); R07.89 Other chest pain; M54.2 Cervicalgia; R00.1 Bradycardia, unspecified; Z88.6 Allergy status to analgesic agent
CPT/HCPCS: J1200; J2765; J7120

== ENCOUNTER 2023-11-20 13:52 | Emergency (ER) | payer MEDICAID ==
[~2023-11-20] VITALS: Ht 167.6 cm; Wt 79.5 kg
[2023-11-20 14:09] VITALS: TEMP 98.1
[2023-11-20] MEDS ORDERED: Mag/Al Hydrox/Simeth Susp 30 ML CUP PO ONE (15:00)
[2023-11-20] MEDS ORDERED: NS 1,000 ML IV ONE (15:00)
[2023-11-20] MEDS ORDERED: Ondansetron 4 MG/2 ML VIAL IV ONE (15:00)
[2023-11-20 15:10] LABS: BASO # 0.1 K/mm3 (0.0-0.2); BASO % 0.7 % (0.0-2.0); EOS # 0.1 K/mm3 (0.0-0.7); EOS % 0.5 % (0.0-4.0); GRAN # 7.4 K/mm3 (1.4-6.5); GRAN % 67.8 % (42.2-75.2); HEMOGLOBIN 10.3 g/dl (12.5-16.0); LYMPH # 2.7 K/mm3 (1.2-3.4); LYMPH % 24.4 % (20.0-51.0); MEAN CELL VOLUME 82 fl (80.0-100.0); MEAN CORPUSCULAR HEMOGLOBIN 25 pg (27-31); MEAN CORPUSCULAR HGB CONC 31 g/dl (33.0-37.0); MEAN PLATELET VOLUME 11.4 fl (7.4-10.4); MONO # 0.7 K/mm3 (0.1-0.6); MONO % 6.2 % (1.7-9.3); PLATELET COUNT 215 K/mm3 (130-400); RED BLOOD COUNT 4.13 M/mm3 (4.10-5.30); REDCELL DISTRIBUTION WIDTH-CV 15.4 % (11.5-14.5)
[2023-11-20 15:11] LABS: HEMATOCRIT 33.8 % (37.0-47.0)
[2023-11-20 15:28] LABS: ALBUMIN 3.7 g/dL (3.5-5.0); BILIRUBIN,TOTAL 0.4 mg/dL (0.2-1.2); CALCIUM 8.8 mg/dL (8.4-10.2); CREATININE, serum 0.83 mg/dL (0.57-1.11); POTASSIUM 3.6 mEq/L (3.5-4.5); TOTAL PROTEIN 6.8 g/dl (6.2-8.1)
[2023-11-20 17:02] LABS: COLLECTION METHOD CLEAN CATCH
[2023-11-20 17:11] LABS: URINE APPEARANCE CLEAR (CLEAR/HAZY); URINE BLOOD NEGATIVE (NEGATIVE); URINE COLOR YELLOW (YELLOW); URINE GLUCOSE NEGATIVE (NEGATIVE); URINE KETONE TRACE (NEGATIVE); URINE NITRATE NEGATIVE (NEGATIVE); URINE PROTEIN(semi-quant) TRACE (NEGATIVE)
[2023-11-20] MEDS ORDERED: CARAFATE 1GM1 G PO (17:36)
[2023-11-20] MEDS ORDERED: PEPCID 20MG TAB20 MG PO (17:36)
[2023-11-20] MEDS ORDERED: ZOFRAN ODT4 MG PO (17:36)
[2023-11-20 17:51] VITALS: BP 104/55; PULSE 48
== END 2023-11-20 17:51 | disposition home or self-care (01) ==
LOC: COL.ER 13:52
PROVIDERS: Emergency Medicine
DX: R10.13 Epigastric pain (principal); R11.10 Vomiting, unspecified
CPT/HCPCS: J2405; J7030